=== PATIENT | female | born 1970 | race Caucasian/White ===

== ENCOUNTER → 2016-10-13 | Outpatient (CLI) | payer BC ==
--- NOTE | 2016-10-13 08:28 | US ---
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 TECHNIQUE: Multiple sonographic images of the thyroid gland are obtained. FINDINGS: Right Lobe: 4.7 x 1.8 x 1.6 cm Left Lobe: 3.9 x1.5 x 1.0 cm Isthmus Thickness: 0.4 cm Overall homogeneous glandular parenchyma. There is a single nodule within the right pole characterized as a 8 mm right mid pole cyst. No other nodule is seen. IMPRESSION: 1. Gland measurements as above with homogeneous parenchyma. 2. A single 8 mm cyst in the right lobe.
[2016-10-13 10:58] LABS: Prolactin 9.7 ng/mL (3.0-18.6)
== END | disposition home or self-care (01) ==
LOC: RADUSWWP 07:50
PROVIDERS: ATTEND Internal Medicine Endocrinology, Diabetes & Metabolism
DX: E04.1 Nontoxic single thyroid nodule (principal); R53.83 Other fatigue
CPT/HCPCS: 36415; 76536; 82533; 82607; 84146; 84439; 84443; 84445; 84480; 84481

== ENCOUNTER → 2016-10-16 | Outpatient (CLI) | payer BC ==
--- NOTE | 2016-10-16 11:03 | MM ---
Reason for exam: follow-up at short interval from prior study. Last mammogram was performed 1 year and 3 months ago. History: Cyst aspiration of the left breast, 2016. Physical Findings: Nurse Summary: 0.5-1cm nodule in the left breast at 12-4 o'clock (nurse kp). MG 3D Diag Mammo W/Cad GABRIEL Bilateral CC and MLO view(s) were taken. Prior study comparison: July 21, 2015, bilateral MG 3d diag mammo w/cad GABRIEL. January 05, 2014, bilateral digital screening mammo w/CAD. February 10, 2011, bilateral digital screening mammo w/CAD. The breast tissue is heterogeneously dense. This may lower the sensitivity of mammography. 1 palpable marker on the right breast and 3 on the left breast. Bilateral circumscribed and mostly circumscribed masses are present, some of which have decreased in size. These results were verbally communicated with the patient and result sheet given to the patient on 10/16/16. ASSESSMENT: Incomplete: need additional imaging evaluation, BI-RAD 0 RECOMMENDATION: Ultrasound of both breasts.
--- NOTE | 2016-10-16 11:17 | USB ---
Reason for exam: follow-up at short interval from prior study. History: Cyst aspiration of the left breast, 2016. US Breast BILAT Right breast ultrasound including all four quadrants, the retroareolar region and axilla demonstrates: - a 1.1 x 0.6 x 0.5cm oval, cystic lesion at 2 o'clock, - a 0.6 x 0.6 x 0.5cm mixed lesion at 7 o'clock, likely the same cyst seen previously now with some debris, - a 0.6 x 0.6 x 0.6cm round, cystic lesion at 7 o'clock, - a 1.4 x 0.7 x 1.3cm oval, cystic lesion at 9 o'clock, - a 1.5 x 0.7 x 1.2cm oval, cystic lesion at 9 o'clock, appears complex with septation versus 1.2 x 0.6 x 0.8cm previously (6 month f/u), - a 1.4 x 0.4 x 0.7cm oval, cystic lesion at 9 o'clock, - a 1.2 x 0.6cm septated lesion at 9 o'clock for which a 6 month follow up is recommended. Left breast ultrasound including all four quadrants, the retroareolar region and axilla demonstrates: - a 0.5 x 0.4 x 0.4cm round, cystic lesion at 12 o'clock, - a 0.6 x 0.4 x 0.4cm oval, cystic cluster at 1 o'clock, - a 0.7 x 0.6 x 0.5cm oval, cystic lesion at 3 o'clock, - a 0.7 x 0.7 x 0.6cm oval, mixed, solid/cystic lesion at 3 o'clock with adherent debris and appear new for which a 6 month follow up is recommended, - a 1.4 x 0.9 x 1.7cm oval, mixed lesion at 2 o'clock versus 12 x 8 x 16mm now with some mural based echogenicity, soft tissue versus adherent debris - and a 0.8 x 0.4 x 0.7cm oval, cystic lesion at 10 o'clock. These results were verbally communicated with the patient and result sheet given to the patient on 10/16/16. ASSESSMENT: Probably benign, BI-RAD 3 RECOMMENDATION: Ultrasound of both breasts in 6 months. (right breast targeted 9:00 x 2) (left breast targeted 2:00 and 3:00) MTDD
== END | disposition home or self-care (01) ==
LOC: RADMAMWWP 08:51
PROVIDERS: ATTEND Surgery
DX: N60.02 Solitary cyst of left breast (principal)
CPT/HCPCS: 76641; G0204; G0279

== ENCOUNTER 2017-11-14 16:46 | Observation (INO) | payer BC ==
[2017-11-14] MEDS ORDERED: IPRATROPIUM-ALBUTEROL 3 ML NEB INHALATION STA (17:25)
[2017-11-14] MEDS ORDERED: SODIUM CHLORIDE 0.9% 1,000 ML IV STA (17:25)
--- NOTE | 2017-11-14 17:34 | ED ---
General Adult HPI - General Chief complaint: Shortness of Breath Stated complaint: Sob Time Seen by Provider: 11/14/17 16:57 Source: patient, RN notes reviewed, old records reviewed Mode of arrival: EMS Limitations: no limitations - History of Present Illness Initial comments: This patient is a 46-year-old female presenting to emergency Department from formerly [facility] chief complaint difficulty breathing and vagal episode and dizziness when she was at the urgent care. Patient has had a significant cough for the past week. She reports on Sunday she saw her primary care provider and was started on azithromycin. They also wanted to start her on steroids that she did not want to take them because she recently lost 5 pounds and didn't want to gain weight. Patient has no history of lung diseases. Denies any history of asthma COPD. She does not regularly use an inhaler. [facility] was feeling weak and short of breath they did give her an albuterol breathing treatment. She states that she had a significant coughing fit afterwards and a syncopal episode to that. Patient reports that she has no specific chest pain. Her cough has been nonproductive. Denies any abdominal pain, nausea or vomiting. - Related Data Home Medications Medication Instructions Recorded Confirmed ALPRAZolam [Xanax] 0.5 tab PO QID PRN 05/03/14 11/14/17 HYDROcodone/APAP 10-325MG [[place] 1 tab PO QID PRN 11/14/17 11/14/17 10-325] Sertraline [Zoloft] 50 mg PO HS 11/14/17 11/14/17 Allergies Allergy/AdvReac Type Severity Reaction Status Date / Time prochlorperazine edisylate Allergy Unknown Verified 11/14/17 17:35 [From Compazine] prochlorperazine maleate Allergy Unknown Verified 11/14/17 17:35 [From Compazine] Review of Systems ROS Statement: Those systems with pertinent positive or pertinent negative responses have been documented in the HPI. ROS Other: All systems not noted in ROS Statement are negative. Past Medical History Past Medical History: No Reported History Additional Past Medical History / Comment(s): Chronic back pain, migraines, History of Any Multi-Drug Resistant Organisms: None Reported Past Surgical History: Section, Hernia Repair Additional Past Surgical History / Comment(s): ectopic , intussusception Past Psychological History: Anxiety Smoking Status: Former smoker Past Alcohol Use History: Occasional Past Drug Use History: None Reported General Exam - General Exam Comments Initial Comments: This patient is a 46-year-old female. Upon entering the room patient does appear to have some labored breathing. Oxygen saturation was 88% on room air. Limitations: no limitations General appearance: alert, in no apparent distress Head exam: Present: atraumatic, normocephalic, normal inspection Eye exam: Present: normal appearance, PERRL, EOMI. Absent: scleral icterus, conjunctival injection, periorbital swelling ENT exam: Present: normal exam, mucous membranes moist Neck exam: Present: normal inspection. Absent: tenderness, meningismus, lymphadenopathy Respiratory exam: Present: wheezes (significant wheezing bilaterally). Absent: normal lung sounds bilaterally, respiratory distress, rales, rhonchi, stridor Cardiovascular Exam: Present: regular rate, normal rhythm, normal heart sounds. Absent: systolic murmur, diastolic murmur, rubs, gallop, clicks GI/Abdominal exam: Present: soft, normal bowel sounds. Absent: distended, tenderness, guarding, rebound, rigid Extremities exam: Present: normal inspection, full ROM, normal capillary refill. Absent: tenderness, pedal edema, joint swelling, calf tenderness Back exam: Present: normal inspection Neurological exam: Present: alert, oriented X3, CN II-XII intact Psychiatric exam: Present: normal affect, normal mood Course Vital Signs 11/14/17 11/14/17 11/14/17 16:50 17:18 18:09 Temperature 98.9 F Pulse Rate 83 87 Respiratory 24 20 Rate Blood Pressure 135/70 O2 Sat by Pulse 94 L Oximetry 11/14/17 18:19 Temperature Pulse Rate 91 Respiratory Rate Blood Pressure O2 Sat by Pulse Oximetry - Reevaluation(s) Reevaluation #1: 11/14/17 19:04 Patient was reevaluated, she was informed of all of her test results and make positive for influenza. Discuss her chest x-ray is normal. Lab work was reviewed and normal. Patient is pleased with the results. However she does appear to be very labored in breathing at this time. She is mouth breathing. He went off of the oxygen oxygen saturation continues to go to 92-93%. This is after a DuoNeb treatment. Medical Decision Making - Medical Decision Making 46-year-old female presents emergency Department chief complaint of shortness of breath. She is sent here from [facility] due to low oxygen saturations and severe coughing and vagal episode after breathing treatment. Patient was started on azithromycin by PCP for bronchitis on Sunday. She reports she also given a prescription for steroids and hasn't been taking them as she is concerned she was going to gain weight. Patient arrives with a low oxygen saturation 89% on room air. She started on for 2 L of oxygen, given a DuoNeb treatment. Patient continued to have some wheezing afterward and he has low oxygen saturation. Patient's labwork was reviewed and NORMAL limits. Patient' s EKG is normal. She does have a positive influenza. Patient will be started on Tamiflu and treated for COPD exacerbation. She is not a smoker and has no previous lung issues. Discussed with Dr. Velazquez. Discussed with her admitting physician Dr. Harris. - Lab Data Result diagrams: 11/14/17 17:11 11/14/17 17:11 Lab Results 11/14/17 11/14/17 11/14/17 Range/Units 17:11 17:11 17:11 WBC 5.4 (3.8-10.6) k/uL RBC 4.27 (3.80-5.40) m/uL Hgb 12.9 (11.4-16.0) gm/dL Hct 38.6 (34.0-46.0) % MCV 90.4 (80.0-100.0) fL MCH 30.2 (25.0-35.0) pg MCHC 33.3 (31.0-37.0) g/dL RDW 14.1 (11.5-15.5) % Plt Count 362 (150-450) k/uL Neutrophils % 64 % Lymphocytes % 27 % Monocytes % 7 % Eosinophils % 1 % Basophils % 1 % Neutrophils # 3.4 (1.3-7.7) k/uL Lymphocytes # 1.4 (1.0-4.8) k/uL Monocytes # 0.4 (0-1.0) k/uL Eosinophils # 0.0 (0-0.7) k/uL Basophils # 0.0 (0-0.2) k/uL PT (9.0-12.0) sec INR (<1.2) APTT (22.0-30.0) sec D-Dimer (<0.60) mg/L FEU Sodium (137-145) mmol/L Potassium (3.5-5.1) mmol/L Chloride (98-107) mmol/L Carbon Dioxide (22-30) mmol/L Anion Gap mmol/L BUN (7-17) mg/dL Creatinine (0.52-1.04) mg/dL Est GFR (MDRD) Af Amer (>60 ml/min/1.73 sqM) Est GFR (MDRD) Non-Af (>60 ml/min/1.73 sqM) Glucose (74-99) mg/dL Calcium (8.4-10.2) mg/dL Magnesium (1.6-2.3) mg/dL Total Bilirubin (0.2-1.3) mg/dL AST (14-36) U/L ALT (9-52) U/L Alkaline Phosphatase (38-126) U/L Total Creatine Kinase 60 (30-135) U/L CK-MB (CK-2) 0.5 (0.0-2.4) ng/mL CK-MB (CK-2) Rel Index 0.8 Troponin I <0.012 (0.000-0.034) ng/mL Total Protein (6.3-8.2) g/dL Albumin (3.5-5.0) g/dL Urine Color Light Yellow Urine Appearance Clear (Clear) Urine pH 5.5 (5.0-8.0) Ur Specific [place] 1.008 (1.001-1.035) Urine Protein Negative (Negative) Urine Glucose (UA) Negative (Negative) Urine Ketones Trace H (Negative) Urine Blood Negative (Negative) Urine Nitrite Negative (Negative) Urine Bilirubin Negative (Negative) Urine Urobilinogen <2.0 (<2.0) mg/dL Ur Leukocyte Esterase Negative (Negative) Influenza Type A RNA (Not Detectd) Influenza Type B (PCR) (Not Detectd) 11/14/17 11/14/17 11/14/17 Range/Units 17:11 17:11 18:03 WBC (3.8-10.6) k/uL RBC (3.80-5.40) m/uL Hgb (11.4-16.0) gm/dL Hct (34.0-46.0) % MCV (80.0-100.0) fL MCH (25.0-35.0) pg MCHC (31.0-37.0) g/dL RDW (11.5-15.5) % Plt Count (150-450) k/uL Neutrophils % % Lymphocytes % % Monocytes % % Eosinophils % % Basophils % % Neutrophils # (1.3-7.7) k/uL Lymphocytes # (1.0-4.8) k/uL Monocytes # (0-1.0) k/uL Eosinophils # (0-0.7) k/uL Basophils # (0-0.2) k/uL PT 9.7 (9.0-12.0) sec INR 1.0 (<1.2) APTT 25.5 (22.0-30.0) sec D-Dimer 0.28 (<0.60) mg/L FEU Sodium 134 L (137-145) mmol/L Potassium 3.8 (3.5-5.1) mmol/L Chloride 97 L (98-107) mmol/L Carbon Dioxide 24 (22-30) mmol/L Anion Gap 13 mmol/L BUN 15 (7-17) mg/dL Creatinine 0.65 (0.52-1.04) mg/dL Est GFR (MDRD) Af Amer >60 (>60 ml/min/1.73 sqM) Est GFR (MDRD) Non-Af >60 (>60 ml/min/1.73 sqM) Glucose 102 H (74-99) mg/dL Calcium 9.3 (8.4-10.2) mg/dL Magnesium 1.6 (1.6-2.3) mg/dL Total Bilirubin 0.1 L (0.2-1.3) mg/dL AST 21 (14-36) U/L ALT 24 (9-52) U/L Alkaline Phosphatase 102 (38-126) U/L Total Creatine Kinase (30-135) U/L CK-MB (CK-2) (0.0-2.4) ng/mL CK-MB (CK-2) Rel Index Troponin I (0.000-0.034) ng/mL Total Protein 6.9 (6.3-8.2) g/dL Albumin 3.9 (3.5-5.0) g/dL Urine Color Urine Appearance (Clear) Urine pH (5.0-8.0) Ur Specific [place] (1.001-1.035) Urine Protein (Negative) Urine Glucose (UA) (Negative) Urine Ketones (Negative) Urine Blood (Negative) Urine Nitrite (Negative) Urine Bilirubin (Negative) Urine Urobilinogen (<2.0) mg/dL Ur Leukocyte Esterase (Negative) Influenza Type A RNA Not Detected (Not Detectd) Influenza Type B (PCR) Detected H (Not Detectd) 11/14/17 17:42 EKG shows a sinus rhythm, normal EKG. Ventricular rate of 88 bpm. AR interval 156 ms. QRS duration 86 no seconds. QT QTc is 370/447 ms. No evidence of ST elevation or T-wave inversions. No evidence of facial or ventricular arrhythmias. - Radiology Data Radiology results: report reviewed Minimal subsegmental atelectasis in the right midlung. Normal heart. Disposition Clinical Impression: Influenza B, Hypoxia, Shortness of breath Disposition: ADMITTED IP TO THIS HOSP Condition: Stable Referrals: Shashi Harris MD [Primary Care Provider] - 1-2 days Time of Disposition: 19:45
[2017-11-14 17:52] LABS: Appearance,Urine Clear (Clear); Basophils % (A) 1 %; Bilirubin,Urine Negative (Negative); Blood,Urine Negative (Negative); Color,Urine Light Yellow; Eosinophils % (A) 1 %; Glucose,Urine (UA) Negative (Negative); HCT 38.6 % (34.0-46.0); HGB 12.9 gm/dL (11.4-16.0); Ketones,Urine Trace (Negative); Leukocyte Esterase,Urine Negative (Negative); Lymphocytes # (A) 1.4 k/uL (1.0-4.8); Lymphocytes % (A) 27 %; MCH 30.2 pg (25.0-35.0); MCHC 33.3 g/dL (31.0-37.0); MCV 90.4 fL (80.0-100.0); Mean Platelet Volume 7.4; Monocytes # (A) 0.4 k/uL (0-1.0); Monocytes % (A) 7 %; Neutrophils # (A) 3.4 k/uL (1.3-7.7); Neutrophils % (A) 64 %; Nitrite,Urine Negative (Negative); PH, Urine 5.5 (5.0-8.0); Platelet Count 362 k/uL (150-450); Protein,Urine Negative (Negative); RBC 4.27 m/uL (3.80-5.40); RDW 14.1 % (11.5-15.5); Specific Gravity,Urine 1.008 (1.001-1.035); Urobilinogen,Urine <2.0 mg/dL (<2.0); WBC 5.4 k/uL (3.8-10.6)
[2017-11-14 17:56] LABS: ALT 24 U/L (9-52); AST 21 U/L (14-36); Albumin 3.9 g/dL (3.5-5.0); Alkaline Phosphatase 102 U/L (38-126); Anion Gap 13 mmol/L; Blood Urea Nitrogen 15 mg/dL (7-17); Calcium 9.3 mg/dL (8.4-10.2); Carbon Dioxide 24 mmol/L (22-30); Chloride 97 mmol/L (98-107); Glucose 102 mg/dL (74-99); Magnesium 1.6 mg/dL (1.6-2.3); Potassium 3.8 mmol/L (3.5-5.1); Sodium 134 mmol/L (137-145); Total Bilirubin 0.1 mg/dL (0.2-1.3); Total Protein 6.9 g/dL (6.3-8.2)
[2017-11-14 18:01] LABS: D-Dimer 0.28 mg/L FEU (<0.60); Partial Thromboplastin Time 25.5 sec (22.0-30.0); Prothrombin Time 9.7 sec (9.0-12.0)
[2017-11-14 18:07] LABS: Creatine Kinase 60 U/L (30-135)
[2017-11-14 18:20] LABS: Creatine Kinase MB 0.5 ng/mL (0.0-2.4); Troponin I <0.012 ng/mL (0.000-0.034)
--- NOTE | 2017-11-14 18:42 | XR ---
EXAMINATION TYPE: XR chest 2V DATE OF EXAM: 11/14/2017 COMPARISON: NONE HISTORY: Short of breath TECHNIQUE: Frontal and lateral views of the chest are obtained. FINDINGS: There is no heart failure nor confluent pneumonic infiltrate. There are chest leads. There are small linear density in the right midlung. There is no evidence of pleural effusion. Bony thorax is intact. IMPRESSION: Minimal subsegmental atelectasis in the right midlung. Normal heart.
[2017-11-14] MEDS ORDERED: OSELTAMIVIR 75 MG CAP PO STA (19:32)
[2017-11-14] MEDS ORDERED: NALOXONE 0.4 MG/ML 1 ML VIAL IV PRN (19:45)
[2017-11-14] MEDS ORDERED: BISACODYL 5 MG TABLET.DR PO PRN (19:45)
[2017-11-14] MEDS ORDERED: ONDANSETRON 4 MG/2 ML VIAL IVP PRN (19:45)
[2017-11-14] MEDS ORDERED: IBUPROFEN 400 MG TAB PO PRN (19:45)
[2017-11-14] MEDS ORDERED: ACETAMINOPHEN TAB 325 MG TAB PO PRN (19:45)
[2017-11-14] MEDS: SODIUM CHLORIDE 0.9% 1,000 ML IV SCH (20:00)
[2017-11-14] MEDS ORDERED: OSELTAMIVIR 75 MG CAP PO SCH (21:00)
[2017-11-14] MEDS ORDERED: SERTRALINE 50 MG TAB PO STA (21:27)
[2017-11-14] MEDS: ALPRAZolam 0.5 MG TAB PO PRN (22:30)
[2017-11-14] MEDS: methylPREDNISolone SOD SUCCI 125 MG/2 ML VIAL IV SCH (22:32)
[2017-11-14 22:45] VITALS: BMI 44.1
[2017-11-15] MEDS: methylPREDNISolone SOD SUCCI 125 MG/2 ML VIAL IV SCH ×4 (05:52→23:27)
[2017-11-15] MEDS: SODIUM CHLORIDE 0.9% 1,000 ML IV SCH ×2 (05:52→15:59)
[2017-11-15] MEDS: ALPRAZolam 0.5 MG TAB PO PRN ×3 (05:52→21:21)
[2017-11-15 07:33] LABS: Glucose,Whole Blood 146 mg/dL (75-99)
--- NOTE | 2017-11-15 08:09 | P.HPIM ---
History of Present Illness Chief Complaint: Upper respiratory congestion. Cough. This is a 46-year-old white female who saw him in the office last week with lower respiratory infection symptoms. Avelox are started. However, over the weekend she became worse she ended up going to the urgent care yesterday and because of her dyspnea was evaluated. Unfortunate, she was positive for influenza B and her's restaurant status declined. Significant cough as otherwise noted. She is a nonsmoker. She struggles with anxiety depression and is going through a process for gastric bypass. Review of Systems Constitutional: Reports fever, Reports sweats, Reports weakness Eyes: denies blurred vision, denies pain Ears, nose, mouth and throat: Denies headache, Denies sore throat Respiratory: Reports cough, Reports pleurisy Gastrointestinal: Denies abdominal pain, Denies diarrhea, Denies nausea, Denies vomiting Genitourinary: Denies dysuria, Denies hematuria Musculoskeletal: Denies myalgias Past Medical History Past Medical History: Pneumonia Additional Past Medical History / Comment(s): Chronic back pain, migraines, History of Any Multi-Drug Resistant Organisms: None Reported Past Surgical History: Section, Hernia Repair Additional Past Surgical History / Comment(s): ectopic , intussusception Past Psychological History: Anxiety Smoking Status: Former smoker Past Alcohol Use History: Occasional Past Drug Use History: None Reported Medications and Allergies Home Medications Medication Instructions Recorded Confirmed Type ALPRAZolam [Xanax] 0.5 mg PO QID PRN 05/03/14 11/14/17 History HYDROcodone/APAP 10-325MG [[place] 1 tab PO QID PRN 11/14/17 11/14/17 History 10-325] Sertraline [Zoloft] 50 mg PO HS 11/14/17 11/14/17 History Allergies Allergy/AdvReac Type Severity Reaction Status Date / Time prochlorperazine edisylate Allergy Unknown Verified 11/14/17 17:35 [From Compazine] prochlorperazine maleate Allergy Unknown Verified 11/14/17 17:35 [From Compazine] Physical Exam Vitals: Vital Signs Temp Pulse Pulse Resp BP BP Pulse Ox 11/15/17 07:00 97.5 F L 87 20 137/76 93 L 11/14/17 21:30 97.9 F 101 H 20 126/75 94 L 11/14/17 20:15 97.9 F 105 H 18 144/82 94 L 11/14/17 18:55 100 20 141/69 95 11/14/17 18:19 91 11/14/17 18:09 87 11/14/17 17:18 20 11/14/17 16:50 98.9 F 83 24 135/70 94 L Intake and Output 11/14/17 11/15/17 11/15/17 22:59 06:59 14:59 Intake Total 450 600 Balance 450 600 Intake: Oral 450 600 Other: # Voids 1 2 Weight 124.09 kg 124.284 kg Results CBC & Chem 7: 11/14/17 17:11 11/14/17 17:11 Labs: Abnormal Lab Results - Last 24 Hours (Table) 11/14/17 11/14/17 11/14/17 Range/Units 17:11 17:11 18:03 Sodium 134 L (137-145) mmol/L Chloride 97 L (98-107) mmol/L Glucose 102 H (74-99) mg/dL POC Glucose (mg/dL) (75-99) mg/dL Total Bilirubin 0.1 L (0.2-1.3) mg/dL Urine Ketones Trace H (Negative) Influenza Type B (PCR) Detected H (Not Detectd) 11/15/17 Range/Units 07:29 Sodium (137-145) mmol/L Chloride (98-107) mmol/L Glucose (74-99) mg/dL POC Glucose (mg/dL) 146 H (75-99) mg/dL Total Bilirubin (0.2-1.3) mg/dL Urine Ketones (Negative) Influenza Type B (PCR) (Not Detectd) Thrombosis Risk Factor Assmnt - Choose All That Apply Any of the Below Risk Factors Present?: Yes Each Factor Represents 1 point: Obesity (BMI >25) Thrombosis Risk Factor Assessment Total Risk Factor Score: 1 Thrombosis Risk Factor Assessment Level: Low Risk Assessment and Plan (1) Hypoxia Current Visit: Yes Status: Acute Code(s): R09.02 - HYPOXEMIA SNOMED Code(s ): 331457487 (2) Influenza B Current Visit: Yes Status: Acute Code(s): J10.1 - FLU DUE TO OTH IDENT INFLUENZA VIRUS W OTH RESP MANIFEST SNOMED Code(s): 98486783 (3) Shortness of breath Current Visit: Yes Status: Acute Code(s): R06.02 - SHORTNESS OF BREATH SNOMED Code(s): 325346681 Plan: Continue steroids with albuterol for today. Otherwise, anticipate discharge in the a.m. Check CBC and CMP in a.m. Time with Patient: Greater than 30
[2017-11-15] MEDS: IPRATROPIUM-ALBUTEROL 3 ML NEB INHALATION PRN ×3 (08:32→16:25)
[2017-11-15] MEDS: AZITHROMYCIN 500 MG TAB PO SCH (08:52)
[2017-11-15] MEDS: OSELTAMIVIR 75 MG CAP PO SCH ×2 (08:52→21:21)
[2017-11-15] MEDS ORDERED: PANTOPRAZOLE 40 MG/10 ML VIAL IV SCH (09:00)
[2017-11-15] MEDS: oxyCODONE-APAP 5-325MG 1 EACH TAB PO PRN ×3 (09:03→19:24)
[2017-11-15] MEDS: PROMETHAZ-COD 6.25-10 MG/5 ML 5 ML CUP PO PRN ×2 (09:03→15:57)
[2017-11-15] MEDS: KETOROLAC 30 MG/ML 1 ML VIAL IVP PRN ×2 (10:33→19:36)
[2017-11-15 12:35] LABS: Glucose,Whole Blood 287 mg/dL (75-99)
[2017-11-15] MEDS: INSULIN ASPART 100 UNIT/ML 1 ML 10 ML VIAL SQ SCH ×3 (14:06→21:23)
[2017-11-15 17:12] LABS: Glucose,Whole Blood 266 mg/dL (75-99)
[2017-11-15 20:35] LABS: Glucose,Whole Blood 191 mg/dL (75-99)
[2017-11-15] MEDS ORDERED: SERTRALINE 50 MG TAB PO SCH (21:00)
[2017-11-16] MEDS: SODIUM CHLORIDE 0.9% 1,000 ML IV SCH (03:35)
[2017-11-16] MEDS: methylPREDNISolone SOD SUCCI 125 MG/2 ML VIAL IV SCH (05:46)
[2017-11-16] MEDS: oxyCODONE-APAP 5-325MG 1 EACH TAB PO PRN (06:53)
[2017-11-16 06:54] LABS: Glucose,Whole Blood 167 mg/dL (75-99)
[2017-11-16 07:08] VITALS: BP 137/73; RESP 20; TEMP 97.8
[2017-11-16] MEDS ORDERED: PANTOPRAZOLE 40 MG TABLET PO SCH (07:30)
[2017-11-16] MEDS: INSULIN ASPART 100 UNIT/ML 1 ML 10 ML VIAL SQ SCH (08:21)
[2017-11-16] MEDS: AZITHROMYCIN 500 MG TAB PO SCH (08:21)
[2017-11-16] MEDS: OSELTAMIVIR 75 MG CAP PO SCH (08:21)
[2017-11-16 09:17] LABS: HCT 37.6 % (34.0-46.0); HGB 12.1 gm/dL (11.4-16.0); MCH 30.4 pg (25.0-35.0); MCHC 32.1 g/dL (31.0-37.0); MCV 94.7 fL (80.0-100.0); Mean Platelet Volume 7.7; Platelet Count 388 k/uL (150-450); RBC 3.97 m/uL (3.80-5.40); RDW 14.1 % (11.5-15.5); WBC 14.9 k/uL (3.8-10.6)
[2017-11-16 09:19] LABS: ALT 18 U/L (9-52); AST 23 U/L (14-36); Albumin 3.6 g/dL (3.5-5.0); Alkaline Phosphatase 88 U/L (38-126); Anion Gap 12 mmol/L; Blood Urea Nitrogen 15 mg/dL (7-17); Calcium 9.5 mg/dL (8.4-10.2); Carbon Dioxide 20 mmol/L (22-30); Chloride 103 mmol/L (98-107); Glucose 269 mg/dL (74-99); Potassium 4.8 mmol/L (3.5-5.1); Sodium 135 mmol/L (137-145); Total Bilirubin 0.2 mg/dL (0.2-1.3); Total Protein 6.4 g/dL (6.3-8.2)
[2017-11-16] MEDS: IPRATROPIUM-ALBUTEROL 3 ML NEB INHALATION PRN (10:14)
[2017-11-16 10:17] VITALS: PULSE 80
[2017-11-16 20:43] LABS: Hemoglobin A1C 6.1 % (4.0-6.0)
--- NOTE | 2017-12-08 22:59 | P.DS ---
Providers Date of admission: 11/14/17 19:45 Attending physician: Shashi Harris Primary care physician: Shashi Harris - Discharge Diagnosis(es) (1) Hypoxia Status: Acute (2) Influenza B Status: Acute (3) Shortness of breath Status: Acute Hospital Course: This discharge summary on a 46-year-old white female essentially admitted for influenza with pneumonia. The patient was stabilized and treated appropriately with Tamiflu. The patient is fatigued but able to be transferred back to home. The patient will follow up with me in approximate 4-5 days. Patient Condition at Discharge: Stable Plan - Discharge Summary New Discharge Prescriptions: New Oseltamivir [Tamiflu] 75 mg PO Q12HR #8 cap predniSONE 10 mg PO DAILY #14 tab Promethaz-Cod 6.25-10 mg/5 ml [Phenergan with Codeine] 5 ml PO Q6H PRN #150 ml PRN Reason: Cold Symptoms Continue ALPRAZolam [Xanax] 0.5 mg PO QID PRN PRN Reason: Anxiety Sertraline [Zoloft] 50 mg PO HS HYDROcodone/APAP 10-325MG [[place] 10-325] 1 tab PO QID PRN PRN Reason: Pain Discharge Medication List ALPRAZolam [Xanax] 0.5 mg PO QID PRN 05/03/14 [History] HYDROcodone/APAP 10-325MG [[place] 10-325] 1 tab PO QID PRN 11/14/17 [History] Sertraline [Zoloft] 50 mg PO HS 11/14/17 [History] Oseltamivir [Tamiflu] 75 mg PO Q12HR #8 cap 11/16/17 [Rx] Promethaz-Cod 6.25-10 mg/5 ml [Phenergan with Codeine] 5 ml PO Q6H PRN #150 ml 11/16/17 [Rx] predniSONE 10 mg PO DAILY #14 tab 11/16/17 [Rx] Follow up Appointment(s)/Referral(s): Shashi Harris MD [Primary Care Provider] - 11/20/17 10:20 am () Patient Instructions/Handouts: Influenza (DC), Dyspnea (GEN) Discharge Disposition: HOME SELF-CARE
== END 2017-11-16 10:31 | disposition home or self-care (01) ==
LOC: EC 16:46 → 4MS4W 19:45
PROVIDERS: ADMIT Family Medicine; ATTEND Family Medicine
DX: J10.00 Influenza due to other identified influenza virus with unspecified type of pneumonia (principal); F41.9 Anxiety disorder, unspecified; F32.9 Major depressive disorder, single episode, unspecified; Z87.01 Personal history of pneumonia (recurrent); R09.02 Hypoxemia; M54.9 Dorsalgia, unspecified; G89.29 Other chronic pain; Z87.891 Personal history of nicotine dependence; E66.9 Obesity, unspecified; Z68.41 Body mass index [BMI] 40.0-44.9, adult; Z79.899 Other long term (current) drug therapy; Z88.8 Allergy status to other drugs, medicaments and biological substances
CPT/HCPCS: 99285; 96361 ×3; 96376 ×2; 96374; 96375; 36415; 94640 ×3; 93005; 85379; 80053 ×2; 82550; 82553; 83735; 84484; 85025; 85027; 85610; 85730; 81003; 87040; 87502; 83036; 71046; G0378 ×3; J2930 ×3; J1885; C9113

== ENCOUNTER → 2017-11-26 | Outpatient (CLI) | payer BC ==
--- NOTE | 2017-11-26 10:27 | XR ---
EXAMINATION TYPE: XR chest 2V DATE OF EXAM: 11/26/2017 COMPARISON: 11/14/2017 TECHNIQUE: PA and lateral views submitted. HISTORY: Follow-up pneumonia FINDINGS: The lungs are clear and there is no pneumothorax, pleural effusion, or focal pneumonia. Mild hypert rophic change of the spine. IMPRESSION: 1. No acute process.
== END | disposition home or self-care (01) ==
LOC: RADXRMAIN 10:01
PROVIDERS: ATTEND Family Medicine
DX: J18.9 Pneumonia, unspecified organism (principal)
CPT/HCPCS: 71046

== ENCOUNTER 2018-04-26 06:47 | Day surgery (SDC) | payer BC ==
[2018-04-22 09:07] VITALS: BMI 44.5
[~2018-04-26 06:47] MED LIST: DEXAMETHASONE SOD PHOSPHATE 10 MG/ML 1 ML VIAL IV ONE; HEPARIN SODIUM,PORCINE 5,000 UNIT/ML 1 ML VIAL SQ ONE; LACTATED RINGERS 1,000 ML IV SCH; ONDANSETRON 4 MG/2 ML VIAL IVP ONE; SCOPOLAMINE 1.5MG/72HR PATCH TRANSDERM ONE; fentaNYL (PF) 50 MCG/ML 2 ML AMP IV PRN
[2018-04-26] MEDS ORDERED: INDOCYANINE GREEN 25 MG VIAL IV STA (06:59)
--- NOTE | 2018-04-26 06:59 | P.GSHP ---
History of Present Illness H&P Date: 04/26/18 CHIEF COMPLAINT: Cholecystitis HISTORY OF PRESENT ILLNESS: The patient is a 47-year-old female who presents with history of epigastric including right upper quadrant abdominal pain. She underwent diagnostic studies for her gallbladder. Separately her clinical picture was consistent with cholecystitis. Now she presents for surgical intervention. PAST MEDICAL HISTORY: Please see list PAST SURGICAL HISTORY: Please see list MEDICATIONS: Please see list ALLERGIES: Denies. SOCIAL HISTORY: No illicit drug use or recent tobacco use FAMILY HISTORY: Pertinent for gallbladder disease REVIEW OF ORGAN SYSTEMS: CONSTITUTIONAL: No reports of fevers or chills. HEENT: Denies any troubles with the vision or hearing. ENDOCRINE: No reports of hypothyroidism. No diabetes. RESPIRATORY: No recent pneumonias. CARDIOVASCULAR: Denies chest pain or palpitations GI: No blood in stools or constipation. MUSCULOSKELETAL: Has occasional joint pain including back pain. NEURO: No seizure disorders or headaches. No recent stroke. PSYCH: No depression or suicidal ideation. HEMATOLOGIC: No personal or family history of DVTs or pulmonary emboli. PHYSICAL EXAM: VITAL SIGNS: Afebrile vital signs stable GENERAL: Well-developed pleasant in no acute distress. HEENT: No scleral icterus. Extraocular movements grossly intact. Moist buccal mucosa. NECK: Supple without lymphadenopathy. CHEST: Unlabored respirations. Equal bilateral excursions. CARDIOVASCULAR: Regular rate regular rhythm rhythm. Distal 2+ pulses. ABDOMEN: Soft, nondistended. Tender along the epigastrium and right upper quadrant. MUSCULOSKELETAL: No clubbing, cyanosis, or edema. NEURO: Cranial nerves II to XII within normal limits. No focal or lateralizing signs. PSYCH: Alert and oriented to person, place and time. ASSESSMENT: 1. Epigastric and right upper quadrant abdominal pain 2. Chronic cholecystitis 3. Symptomatic gallstones. PLAN: 1. Will need a robotic cholecystectomy possible open. Benefits and risks were described. 2. Heparin for DVT prophylaxis 5000 units. 3. Antibiotic prophylaxis. Past Medical History Past Medical History: Pneumonia Additional Past Medical History / Comment(s): Chronic back pain, migraines, CHOLECYSTITIS History of Any Multi-Drug Resistant Organisms: None Reported Past Surgical History: Section, Hernia Repair Additional Past Surgical History / Comment(s): ectopic , intussusceptionSX Past Anesthesia/Blood Transfusion Reactions: Motion Sickness Smoking Status: Current every day smoker - Past Family History Mother Family Medical History: No Reported History Medications and Allergies Home Medications Medication Instructions Recorded Confirmed Type ALPRAZolam [Xanax] 0.5 mg PO QID PRN 05/03/14 04/22/18 History HYDROcodone/APAP 10-325MG [[place] 1 tab PO QID PRN 11/14/17 04/22/18 History 10-325] Sertraline [Zoloft] 50 mg PO HS 11/14/17 04/22/18 History Acyclovir 400 mg PO DAILY 04/22/18 04/22/18 History Lidocaine 5% Patch [Lidoderm] 1 patch TOPICAL DAILY PRN 04/22/18 04/22/18 History Varenicline [Chantix Continuing 1 mg PO BID 04/22/18 04/22/18 History Pack] Allergies Allergy/AdvReac Type Severity Reaction Status Date / Time prochlorperazine edisylate Allergy LOCK JAW Verified 04/22/18 08:59 [From Compazine] prochlorperazine maleate Allergy LOCK JAW Verified 04/22/18 08:59 [From Compazine]
[2018-04-26] MEDS ORDERED: LIDOCAINE 1% 20 ML VIAL (10MG/ML) FOR IV START INTRADERMA ONE (07:28)
[2018-04-26] MEDS: MIDAZOLAM 2 MG/2 ML VIAL IV PRN ×2 (07:50→10:41)
[2018-04-26] MEDS ORDERED: LIDOCAINE 1%-EPI 1:100,000 30 ML VIAL SQ ONE ×2 (09:05→09:37)
[2018-04-26] MEDS ORDERED: KETOROLAC 30 MG/ML 1 ML VIAL ONE (09:15)
[2018-04-26] MEDS ORDERED: NEOSTIGMINE 1 MG/ML 10 ML VIAL ONE (09:15)
[2018-04-26] MEDS ORDERED: MIDAZOLAM 2 MG/2 ML VIAL ONE (09:15)
[2018-04-26] MEDS ORDERED: PROPOFOL 10 MG/ML 20 ML VIAL IV ONE (09:15)
[2018-04-26] MEDS ORDERED: SUCCINYLCHOLINE CHLORIDE VIAL 200 MG/10 ML VIAL IV ONE (09:15)
[2018-04-26] MEDS ORDERED: GLYCOPYRROLATE 0.2 MG/ML 2 ML VIAL ONE (09:15)
[2018-04-26] MEDS ORDERED: PHENYLEPHRINE-0.9% NACL SYG 1 MG/10 ML SYRINGE ONE (09:15)
[2018-04-26] MEDS ORDERED: ONDANSETRON 4 MG/2 ML VIAL ONE (09:15)
[2018-04-26] MEDS ORDERED: fentaNYL (PF) 50 MCG/ML 2 ML AMP ONE (09:15)
[2018-04-26] MEDS ORDERED: LIDOCAINE 1% INJ 10MG/ML (20 ML MDV) ONE (09:15)
--- NOTE | 2018-04-26 10:12 | P.OP ---
Date of Procedure: 04/26/18 Description of Procedure: SURGEON: SHELLY STEVEN MD PREOPERATIVE DIAGNOSES: 1. Symptomatic gallstones 2. Chronic cholecystitis 3. Morbid obesity due to excess calories, BMI 44.5 4. Chronic pain syndrome 5. Anxiety POSTOPERATIVE DIAGNOSES: 1. Symptomatic gallstones 2. Chronic cholecystitis 3. Morbid obesity due to excess calories, BMI 44.5 4. Chronic pain syndrome 5. Anxiety OPERATION: Robotic-assisted da Edil Xi laparoscopic cholecystectomy, multiport with FIREFLY ESTIMATED BLOOD LOSS: 5 mL. SPECIMENS REMOVED: Gallbladder. COMPLICATIONS: None. OPERATIVE FINDINGS: 1. Chronic cholecystitis INDICATIONS: The patient is a 89year-old female who presents with cholelcystitis. Surgical intervention with a laparoscopic cholecystectomy was described at length including injury to the biliary tree, bleeding, infection, need for further surgery. Informed consent was obtained. Robotic assisted laparoscopic approach was described. Benefits and risks of the procedure including but not limited to bleeding, infection, injury to the biliary tree was described. Informed consent was obtained. DESCRIPTION OF PROCEDURE: Patient was brought to the operating room, placed in supine position. After general induction, the abdomen had been prepped and draped in standard sterile fashion. The robotic da Edil XI system was primed. After a timeout protocol was performed, the patient had been prepped and draped in standard sterile fashion. The patient was injected with indocyanine green. A 5 mm 0 degrees laparoscopic trocar entry was performed along the left upper quadrant. The abdomen insufflated to 15 mmHg pressure which she tolerated well. Diagnostic laparoscopy demonstrated no injury to bowel viscera or mesentery. The liver surface was unremarkable. Next, two 8 mm robotic ports were placed along the right upper abdomen. The camera 8-mm port was maintained along the epigastrium. Another 8 mm port was placed along the left upper abdominal wall after exchanging the 5 mm port. Please note that the ports were placed at least 10 to 15 cm away from the target anatomy of the gallbladder. The robot was docked along the left lateral abdomen. The patient was repositioned in reverse Trendelenburg position. Using a grasper for arm 3, a grasper for arm 4, including hook cautery for arm 1 , the robotic system was docked and primed as described. Instruments were interchanged by the residential assistant including hook cautery, Bovie cautery and clip appliers. I had sat at the console. Adhesions were identified along the infundibulum of the gallbladder and addressed using hook cautery. The gallbladder fundus was retracted over the dome of the liver. Initial attention was brought to the infundibulum which was gently retracted in the inferior lateral approach. Using a grasper, the cystic duct including the cystic artery was carefully skeletonized. FIREFLY was used to identify the cystic artery and cystic structures. Large PLASTIC clips were used throughout the entire case. Using a clip electronic equipment trades worker 2 clips were placed proximally, and 1 clip was placed distally along the cystic duct and then cauterized with the cautery. Again care was taken to avoid any injury to the biliary tree as the common bile duct was clearly visualized during this portion of dissection. Next, the cystic artery was similarly clipped and cauterized. Electro-Bovie cautery was used to remove the gallbladder from the hepatic fossa. Hemostasis was checked and found to be adequate. The robot was undocked. I re-scrubbed into the case. Using a 10 mm Endo Catch bag via the left upper quadrant incision, the specimen was removed from the abdominal cavity. All pneumoperitoneum instruments were evacuated from the abdominal cavity. The incisions were reapproximated using 4-0 Monocryl in an interrupted subcuticular fashion. Fascial defects were less than 8 mm in size. Please note along the trocar sites, local anesthetic was placed as a field block prior to insertion of all instruments. Liquid glue was applied to the skin. At the end of the procedure needle, sponge, and instrument count had been verified correct by the cardiovascular surgical tech. The patient was transferred to postanesthesia care unit in stable condition. Intraoperative films were shared with the patient's family who were very pleased with the level of care. Console time 10 minutes Plan - Discharge Summary New Discharge Prescriptions: No Action ALPRAZolam [Xanax] 0.5 mg PO QID PRN PRN Reason: Anxiety Sertraline [Zoloft] 50 mg PO HS HYDROcodone/APAP 10-325MG [[place] 10-325] 1 tab PO QID PRN PRN Reason: Pain Acyclovir 400 mg PO DAILY Varenicline [Chantix Continuing Pack] 1 mg PO BID Lidocaine 5% Patch [Lidoderm] 1 patch TOPICAL DAILY PRN PRN Reason: Pain Discharge Medication List ALPRAZolam [Xanax] 0.5 mg PO QID PRN 05/03/14 [History] HYDROcodone/APAP 10-325MG [[place] 10-325] 1 tab PO QID PRN 11/14/17 [History] Sertraline [Zoloft] 50 mg PO HS 11/14/17 [History] Acyclovir 400 mg PO DAILY 04/22/18 [History] Lidocaine 5% Patch [Lidoderm] 1 patch TOPICAL DAILY PRN 04/22/18 [History] Varenicline [Chantix Continuing Pack] 1 mg PO BID 04/22/18 [History] Patient Instructions/Handouts: *Surgery [facility] - Scopalamine Patch Instructions
[2018-04-26] MEDS: HYDROmorphone 1 MG/ML 1 ML SYRINGE IVP ONE ×2 (10:26→10:32)
[2018-04-26] MEDS ORDERED: diphenhydrAMINE 50 MG/ML 1 ML VIAL IVP ONE (10:28)
[2018-04-26] MEDS ORDERED: PROMETHAZINE INJ 25 MG/ML 1 ML VIAL IVPB ONE (10:36)
[2018-04-26 10:43] VITALS: TEMP 97.3
[2018-04-26 10:57] VITALS: RESP 16
[2018-04-26] MEDS ORDERED: HYDROcodone/APAP 10-325MG 1 EACH TAB PO ONE (11:19)
[2018-04-26 12:02] VITALS: BP 136/86; PULSE 77
== END 2018-04-26 12:13 | disposition home or self-care (01) ==
LOC: OR 06:47
PROVIDERS: ATTEND Surgery Plastic and Reconstructive Surgery
DX: K81.9 Cholecystitis, unspecified (principal); G89.4 Chronic pain syndrome; M54.9 Dorsalgia, unspecified; F41.9 Anxiety disorder, unspecified; E66.01 Morbid (severe) obesity due to excess calories; Z68.41 Body mass index [BMI] 40.0-44.9, adult; F17.210 Nicotine dependence, cigarettes, uncomplicated; Z88.8 Allergy status to other drugs, medicaments and biological substances; Z79.899 Other long term (current) drug therapy; Z83.79 Family history of other diseases of the digestive system
CPT/HCPCS: 47562; 81025; 88304; 84132; J2250; J0330; J1200; J1644; J1100; J2550; J2710; J0690; J2405; J2001; J3010; J1885; J1170; J2370; J2704

== ENCOUNTER → 2018-08-16 | Outpatient (CLI) | payer BC ==
--- NOTE | 2018-08-19 10:02 | MM ---
Reason for exam: additional evaluation requested from prior study. Last mammogram was performed 1 year and 10 months ago. History: Cyst aspiration of the left breast, 2016. Physical Findings: Nurse did not find any significant physical abnormalities on exam. MG 3D Diag Mammo W/Cad GABRIEL Bilateral CC and MLO view(s) were taken. Prior study comparison: October 16, 2016, bilateral MG 3d diag mammo w/cad GABRIEL. July 21, 2015, bilateral MG 3d diag mammo w/cad GABRIEL. The breast tissue is heterogeneously dense. This may lower the sensitivity of mammography. Persistent nodularity, ultrasound recommended. These results were verbally communicated with the patient and result sheet given to the patient on 08/16/18. ASSESSMENT: Incomplete: need additional imaging evaluation, BI-RAD 0 RECOMMENDATION: Ultrasound of both breasts.
--- NOTE | 2018-08-19 10:06 | USB ---
Reason for exam: additional evaluation requested from abnormal screening. History: Cyst aspiration of the left breast, 2016. US Breast Limited BILAT Right limited breast ultrasound including focal area of concern, retroareolar and axilla demonstrates a 0.8 x 0.6 x 0.8cm cystic lesion at 9 o'clock, a 0.6 x 0.4 x 0.4cm cystic, hypoechoic lesion at 11 o'clock and a 0.6 x 0.6 x 0.9cm cystic cluster at 10 o'clock retroareola. Left limited breast ultrasound including focal area of concern, retroareolar and axilla demonstrates a 0.9 x 0.3 x 0.7cm cystic cluster at 2 o'clock, a 0.9 x 0.5 x 0.8cm cystic cluster at 3 o'clock, a 0.6 x 0.6 x 0.7cm mixed lesion at 3 o'clock and a 0.7 x 0.3 x 0.6cm cystic lesion at 3 o'clock. Overall fibrocystic change. Multiple cystic areas visualized. These results were verbally communicated with the patient and result sheet given to the patient on 08/16/18. ASSESSMENT: Benign, BI-RAD 2 RECOMMENDATION: Follow-up diagnostic mammogram of both breasts in 1 year.
== END | disposition home or self-care (01) ==
LOC: RADMAMWWP 15:25
PROVIDERS: ATTEND Surgery
DX: R92.8 Other abnormal and inconclusive findings on diagnostic imaging of breast (principal)
CPT/HCPCS: 77062; 77066

== ENCOUNTER → 2020-06-02 | Outpatient (CLI) | payer OTHER ==
--- NOTE | 2020-06-02 22:45 | MR ---
EXAMINATION TYPE: MR sacroiliac joints wo con DATE OF EXAM: 06/02/2020 COMPARISON: None. HISTORY: Inflammation of SI joints. Abnormal x-ray per patient. Standard multiplanar, multisequence MRI departmental protocol Multiplanar, multisequence images of the pelvis focused on sacroiliac joints were acquired. FINDINGS: Sacroiliac joints show mild narrowing bilaterally left greater than right. No significant s purring is present. No suspicious edema noted. Bone marrow signal intensity is preserved. Incidental moderate to severe disc space narrowing and spurring at the lumbosacral junction. IMPRESSION: Mild degenerative changes sacroiliac joints bilaterally. Left greater than right. No MRI evidence for acute edema to suggest active inflammation on this noncontrast study.
== END | disposition home or self-care (01) ==
LOC: RADMRIMAIN 17:03
PROVIDERS: ATTEND Internal Medicine Rheumatology
DX: M46.1 Sacroiliitis, not elsewhere classified (principal)
CPT/HCPCS: 72195

== ENCOUNTER → 2020-11-09 | Outpatient (CLI) | payer OTHER ==
--- NOTE | 2020-11-09 10:26 | CT ---
EXAMINATION TYPE: CT abdomen pelvis w con DATE OF EXAM: 11/09/2020 COMPARISON: No prior CT is available HISTORY: Diverticulitis CT DLP: 1666 mGycm Automated exposure control for dose reduction was used. TECHNIQUE: Helical acquisition of images from the lung bases through the pelvis have been completed. CONTRAST: Performed with Oral Contrast and with IV Contrast, patient injected with 100 ml mL of Isovue 300. FINDINGS: Surgical clips are present at the gastroesophageal junction. LUNG BASES: No significant abnormality is appreciated. AORTA: No significant abnormality is appreciated. LIVER/GB: Mildly dilated intrahepatic biliary ducts likely due to postcholecystectomy change. Tiny fo ci of low attenuation may represent small cysts but are indeterminate scattered within the liver PANCREAS: Redundant tail of pancreas thought present at the level of the splenic hilum. SPLEEN: No significant abnormality is seen. ADRENALS: No significant abnormality is seen. KIDNEYS: No significant abnormality is seen. Duplicated left renal collecting system is present. REPRODUCTIVE ORGANS: No significant abnormality is seen BOWEL: There is extensive diverticular change associated with the colon especially sigmoid FREE AIR: No Free Air visible. ASCITES: None visible. PELVIC ADENOPATHY: None visualized. RETROPERITONEAL ADENOPATHY: No Retroperitoneal Adenopathy visible. URINARY BLADDER: No significant abnormality is seen. OSSEOUS STRUCTURES: Degenerative disc changes are noted especially at L5-S1. IMPRESSION: DIVERTICULOSIS. POSTOP CHANGES.
== END | disposition home or self-care (01) ==
LOC: RADCTMAIN 07:01
PROVIDERS: ATTEND Surgery Plastic and Reconstructive Surgery
DX: K57.90 Diverticulosis of intestine, part unspecified, without perforation or abscess without bleeding (principal); Z98.890 Other specified postprocedural states
CPT/HCPCS: 74177; Q9967

== ENCOUNTER → 2020-11-16 | Outpatient (CLI) | payer OTHER ==
[2020-11-16 11:26] LABS: HCT 48.1 % (34.0-46.0); HGB 15.5 gm/dL (11.4-16.0); MCH 30.3 pg (25.0-35.0); MCHC 32.3 g/dL (31.0-37.0); MCV 93.9 fL (80.0-100.0); Mean Platelet Volume 7.3; Platelet Count 428 k/uL (150-450); RBC 5.12 m/uL (3.80-5.40); RDW 14.1 % (11.5-15.5); WBC 10.6 k/uL (3.8-10.6)
[2020-11-16 11:46] LABS: ALT 21 U/L (4-34); AST 23 U/L (14-36); African American GFR (CKD) >90 (>60 ml/min/1.73 sqM); Albumin 4.6 g/dL (3.5-5.0); Alkaline Phosphatase 104 U/L (38-126); Anion Gap 10 mmol/L; Blood Urea Nitrogen 11 mg/dL (7-17); Calcium 10.2 mg/dL (8.4-10.2); Carbon Dioxide 23 mmol/L (22-30); Chloride 104 mmol/L (98-107); Glucose 110 mg/dL (74-99); Non-African American GFR(CKD) >90 (>60 ml/min/1.73 sqM); Potassium 4.7 mmol/L (3.5-5.1); Sodium 137 mmol/L (137-145); Total Bilirubin 0.4 mg/dL (0.2-1.3); Total Protein 7.7 g/dL (6.3-8.2)
== END | disposition home or self-care (01) ==
LOC: LABWHC1 10:16
PROVIDERS: ATTEND Surgery Plastic and Reconstructive Surgery
DX: K57.32 Diverticulitis of large intestine without perforation or abscess without bleeding (principal)
CPT/HCPCS: 36415; 80053; 85027

== ENCOUNTER 2020-11-24 07:51 | Day surgery (SDC) | payer OTHER ==
[2020-11-22 10:48] VITALS: BMI 44.4
--- NOTE | 2020-11-24 04:13 | P.GSHP ---
History of Present Illness H&P Date: 11/24/20 CHIEF COMPLAINT: GERD and colon screen HISTORY OF PRESENT ILLNESS: The patient is a 49-year-old female who presents with gastroesophageal reflux disease and need for colon screen. Upper and lower endoscopy were offered for further evaluation and management. PAST MEDICAL HISTORY: Please see list. PAST SURGICAL HISTORY: Please see list. MEDICATIONS: Please see list. ALLERGIES: Please see list. SOCIAL HISTORY: No illicit drug use FAMILY HISTORY: No reports of Crohn disease or ulcerative colitis. REVIEW OF ORGAN SYSTEMS: CONSTITUTIONAL: No reports of fevers or chills. GI: Denies any blood in stools or constipation. PHYSICAL EXAM: VITAL SIGNS: Stable GENERAL: Well-developed pleasant in no acute distress. HEENT: No scleral icterus. Extraocular movements grossly intact. Moist buccal mucosa. NECK: Supple without lymphadenopathy. CHEST: Unlabored respirations. Equal bilateral excursions. CARDIOVASCULAR: Regular rate and rhythm. Distal 2+ pulses. ABDOMEN: Soft, nondistended. MUSCULOSKELETAL: No clubbing, cyanosis, or edema. ASSESSMENT: 1. Gastroesophageal reflux disease 2. Colon screen. PLAN: 1. Recommend proceeding with an upper and lower endoscopy Past Medical History Past Medical History: Asthma, GERD/Reflux, GI Bleed, Hyperlipidemia, Osteoarthritis (OA), Pneumonia, Skin Disorder Additional Past Medical History / Comment(s): Recent Diverticulitis flare up. Chronic back pain, migraines, hx Pneumonia numerous times, low BP, "episodes of high cholestrol, no treatment." "Can't remember name of skin disorder." History of Any Multi-Drug Resistant Organisms: None Reported Past Surgical History: Section, Cholecystectomy, Hernia Repair Additional Past Surgical History / Comment(s): Ectopic , intussusception surgery, Laproscopic Leanne Fundoplasty, correction of Asherman's Syndrome (Cervical(CROSSING GATEMAN) Surgery for scar tissue formation). Past Anesthesia/Blood Transfusion Reactions: No Reported Reaction, Motion Sickness Past Psychological History: Anxiety, Depression Smoking Status: Current every day smoker Past Alcohol Use History: None Reported Additional Past Alcohol Use History / Comment(s): Smokes 1/2-1PPD, has been smoking on and off since 17 yrs old. Past Drug Use History: None Reported - Past Family History Mother Family Medical History: No Reported History Brother(s) Family Medical History: Deep Vein Thrombosis (DVT), Myocardial Infarction ([place]) Medications and Allergies Home Medications Medication Instructions Recorded Confirmed Type ALPRAZolam [Xanax] 0.5 mg PO QID PRN 05/03/14 11/22/20 History HYDROcodone/APAP 10-325MG [[place] 1 tab PO QID PRN 11/14/17 11/22/20 History 10-325] Sertraline [Zoloft] 50 mg PO HS 11/14/17 11/22/20 History Acyclovir 400 mg PO DAILY 04/22/18 11/22/20 History Ammonium Lactate Cream [Lac-Hydrin 1 applic TOPICAL BID PRN 11/22/20 11/22/20 History 12% Cream] Ibuprofen [Motrin] 800 mg PO Q8H PRN 11/22/20 11/22/20 History Allergies Allergy/AdvReac Type Severity Reaction Status Date / Time prochlorperazine edisylate Allergy LOCK JAW Verified 11/22/20 10:24 [From Compazine] prochlorperazine maleate Allergy LOCK JAW Verified 11/22/20 10:24 [From Compazine]
[~2020-11-24 07:51] MED LIST changes: -DEXAMETHASONE SOD PHOSPHATE 10 MG/ML 1 ML VIAL IV ONE; -HEPARIN SODIUM,PORCINE 5,000 UNIT/ML 1 ML VIAL SQ ONE; +LIDOCAINE 1% (10MG/ML) FOR IV START INTRADERMA PRN; -ONDANSETRON 4 MG/2 ML VIAL IVP ONE; -SCOPOLAMINE 1.5MG/72HR PATCH TRANSDERM ONE; -fentaNYL (PF) 50 MCG/ML 2 ML AMP IV PRN
[2020-11-24 08:12] VITALS: TEMP 97.3
[2020-11-24] MEDS ORDERED: ONDANSETRON 4 MG/2 ML VIAL IVP ONE (08:47)
[2020-11-24] MEDS ORDERED: PROPOFOL 10 MG/ML 20 ML VIAL IV ONE (09:02)
[2020-11-24] MEDS ORDERED: LIDOCAINE 1% INJ 10MG/ML (20 ML MDV) ONE (09:02)
--- NOTE | 2020-11-24 09:17 | P.PCN ---
Date of Procedure: 11/24/20 Description of Procedure: PREOPERATIVE DIAGNOSIS: Gastroesophageal reflux disease. Morbid obesity. POSTOPERATIVE DIAGNOSIS: Morbid obesity. Gastritis. Gastroesophageal reflux disease. OPERATION: Esophagogastroduodenoscopy with biopsies along antrum. SURGEON: Lola Galindo MD ANESTHESIA: MAC. INDICATIONS: The patient is a 49-year-old female who presents with a history of reflux disease. Benefits and risks of the procedure were described. Informed consent was obtained. DESCRIPTION: The patient was brought into the endoscopy suite and laid in the left lateral decubitus position. An Olympus gastroscope was passed along the posterior oropharynx down to the distal esophagus where the squamocolumnar junction was encountered at 37 cm from the incisors. The stomach was entered and no bile reflux was found. Additional findings are listed below. Biopsies with cold forceps were obtained of the antrum. The first through third portion of the duodenum was examined and unremarkable. Retroflexion of the scope confirmed Hill grade 1 lower esophageal valve. The squamocolumnar junction demonstrated no LA grade A erosive esophagitis. The stomach was desufflated. The patient tolerated the procedure well. FINDINGS: Squamocolumnar junction 37 cm from the incisors. Diaphragmatic hiatus at 37 cm. Hill grade 1 lower esophageal valve. Leanne fundoplasty intact. No LA grade A erosive esophagitis. No active duodenitis. Chronic gastritis RECOMMENDATIONS: Upper endoscopy as needed.
--- NOTE | 2020-11-24 09:35 | P.PCN ---
Date of Procedure: 11/24/20 Description of Procedure: PREOPERATIVE DIAGNOSIS: Recurrent diverticulitis POSTOPERATIVE DIAGNOSIS: Severe sigmoid diverticulosis Diverticulosis, scattered Sigmoid colon polyp OPERATION: Colonoscopy to the cecum, ileocecal valve and appendiceal orifice. Colonoscopy with cold forceps biopsy, sigmoid colon SURGEON: Lola Galindo MD. ANESTHESIA: MAC. INDICATIONS: The patient is a 49-year-old female who presents for diverticulosis with diverticulitis. Benefits and risks were described and informed consent was obtained. DESCRIPTION OF PROCEDURE: The patient had undergone Gatorade, MiraLAX and Dulcolax prep. The patient had been brought into the operating room and laid in the left lateral decubitus position. After adequate intravenous sedation, the rectum was examined with 2% lidocaine jelly. No external hemorrhoids were encountered. The rectal tone was within normal limits. No lesions were palpated in the rectal vault. An Olympus colonoscope was advanced until the cecum, ileocecal valve and appendiceal orifice were clearly viewed. The prep was fair. Severe sigmoid diverticulosis with scattered diverticulosis was encountered. A hyperplastic 3 mm colon polyp was removed at the sigmoid colon, 20 cm from the anal verge using cold forceps. No evidence of focal colitis was found. Retroflexion of the scope demonstrated grade 1 internal hemorrhoids without active bleeding or inflammation. The colon was desufflated. The patient had tolerated the procedure well. Withdrawal time was over 6 minutes. FINDINGS: Aronchick preparation quality scale 3 (1-5) Internal hemorrhoids, grade 1 No external prolapsed hemorrhoids. No arteriovenous malformations. Severe sigmoid diverticulosis with scattered diverticulosis No focal colitis. RECOMMENDATIONS: Lower endoscopy every in 5 years, 2025 Plan - Discharge Summary Discharge Rx Participant: No New Discharge Prescriptions: Continue ALPRAZolam [Xanax] 0.5 mg PO QID PRN PRN Reason: Anxiety Sertraline [Zoloft] 50 mg PO HS HYDROcodone/APAP 10-325MG [[place] 10-325] 1 tab PO QID PRN PRN Reason: Pain Acyclovir 400 mg PO DAILY Ibuprofen [Motrin] 800 mg PO Q8H PRN PRN Reason: Pain Ammonium Lactate Cream [Lac-Hydrin 12% Cream] 1 applic TOPICAL BID PRN PRN Reason: Skin Disorder Discharge Medication List ALPRAZolam [Xanax] 0.5 mg PO QID PRN 05/03/14 [History] HYDROcodone/APAP 10-325MG [[place] 10-325] 1 tab PO QID PRN 11/14/17 [History] Sertraline [Zoloft] 50 mg PO HS 11/14/17 [History] Acyclovir 400 mg PO DAILY 04/22/18 [History] Ammonium Lactate Cream [Lac-Hydrin 12% Cream] 1 applic TOPICAL BID PRN 11/22/20 [History] Ibuprofen [Motrin] 800 mg PO Q8H PRN 11/22/20 [History] Follow up Appointment(s)/Referral(s): Lola Galindo MD [STAFF PHYSICIAN] - 11/30/20 Patient Instructions/Handouts: Diverticulosis Diet (GEN), Diverticulosis (ED), Colorectal Polyps (DC) Activity/Diet/Wound Care/Special Instructions: Repeat colonoscopy 5 years, 2025 Discharge Disposition: HOME SELF-CARE
[2020-11-24] MEDS ORDERED: ONDANSETRON 4 MG/2 ML VIAL ONE (09:44)
[2020-11-24 10:03] VITALS: BP 108/75; PULSE 83; RESP 16
== END 2020-11-24 10:27 | disposition home or self-care (01) ==
LOC: ORWHC2ENDO 07:51
PROVIDERS: ATTEND Surgery Plastic and Reconstructive Surgery
DX: K63.5 Polyp of colon (principal); K57.30 Diverticulosis of large intestine without perforation or abscess without bleeding; K64.0 First degree hemorrhoids; K29.50 Unspecified chronic gastritis without bleeding; K21.9 Gastro-esophageal reflux disease without esophagitis; E66.01 Morbid (severe) obesity due to excess calories; J45.909 Unspecified asthma, uncomplicated; E78.5 Hyperlipidemia, unspecified; M19.90 Unspecified osteoarthritis, unspecified site; G89.29 Other chronic pain; G43.909 Migraine, unspecified, not intractable, without status migrainosus; L98.9 Disorder of the skin and subcutaneous tissue, unspecified; F41.9 Anxiety disorder, unspecified; F32.9 Major depressive disorder, single episode, unspecified; F17.210 Nicotine dependence, cigarettes, uncomplicated; K08.89 Other specified disorders of teeth and supporting structures; Z68.41 Body mass index [BMI] 40.0-44.9, adult; Z87.19 Personal history of other diseases of the digestive system; Z87.01 Personal history of pneumonia (recurrent); Z86.39 Personal history of other endocrine, nutritional and metabolic disease; Z98.890 Other specified postprocedural states; Z90.49 Acquired absence of other specified parts of digestive tract; Z87.59 Personal history of other complications of pregnancy, childbirth and the puerperium; Z87.42 Personal history of other diseases of the female genital tract; Z87.898 Personal history of other specified conditions; Z79.899 Other long term (current) drug therapy; Z79.891 Long term (current) use of opiate analgesic; Z79.52 Long term (current) use of systemic steroids; Z79.1 Long term (current) use of non-steroidal anti-inflammatories (NSAID); Z88.8 Allergy status to other drugs, medicaments and biological substances; Z82.49 Family history of ischemic heart disease and other diseases of the circulatory system
CPT/HCPCS: 88305; 45380; 43239; J2405; J2001; J2704

== ENCOUNTER → 2021-01-14 | Outpatient (CLI) | payer OTHER ==
[2021-01-18 08:24] LABS: Anabasine Urine <2.0 ng/mL (<2.0)
== END | disposition home or self-care (01) ==
LOC: LABWHC1 14:01
PROVIDERS: ATTEND Surgery Plastic and Reconstructive Surgery
DX: Z71.51 Drug abuse counseling and surveillance of drug abuser (principal)
CPT/HCPCS: 80323

== ENCOUNTER → 2021-02-02 | Outpatient (CLI) | payer OTHER ==
[2021-02-05 15:56] LABS: Anabasine Urine <2.0 ng/mL (<2.0)
== END | disposition home or self-care (01) ==
LOC: LABWHC1 07:05
PROVIDERS: ATTEND Surgery Plastic and Reconstructive Surgery
DX: Z71.51 Drug abuse counseling and surveillance of drug abuser (principal)
CPT/HCPCS: 80323

== ENCOUNTER → 2021-05-19 | Outpatient (CLI) | payer OTHER | END | disposition home or self-care (01) | LOC: LABPAT 10:28 | PROVIDERS: ATTEND Surgery Plastic and Reconstructive Surgery | DX: Z01.812 Encounter for preprocedural laboratory examination (principal) | CPT/HCPCS: 80053; 85027; 86850; 86900; 86901 ==

== ENCOUNTER 2021-05-26 07:08 | Inpatient (IN) | payer OTHER ==
[2021-05-19 11:53] LABS: HCT 41.5 % (34.0-46.0); HGB 14.2 gm/dL (11.4-16.0); MCH 32.1 pg (25.0-35.0); MCHC 34.2 g/dL (31.0-37.0); MCV 93.8 fL (80.0-100.0); Mean Platelet Volume 7.3; Platelet Count 401 k/uL (150-450); RBC 4.43 m/uL (3.80-5.40); RDW 14.2 % (11.5-15.5); WBC 7.8 k/uL (3.8-10.6)
[2021-05-19 12:12] VITALS: BMI 46.6
[2021-05-19 12:30] LABS: ALT 21 U/L (4-34); AST 34 U/L (14-36); African American GFR (CKD) >90 (>60 ml/min/1.73 sqM); Albumin 4.6 g/dL (3.5-5.0); Alkaline Phosphatase 131 U/L (38-126); Anion Gap 12 mmol/L; Blood Urea Nitrogen 20 mg/dL (7-17); Calcium 9.7 mg/dL (8.4-10.2); Carbon Dioxide 19 mmol/L (22-30); Chloride 105 mmol/L (98-107); Glucose 149 mg/dL (74-99); Non-African American GFR(CKD) 88 (>60 ml/min/1.73 sqM); Sodium 136 mmol/L (137-145); Total Bilirubin 0.5 mg/dL (0.2-1.3); Total Protein 7.5 g/dL (6.3-8.2)
[2021-05-19 12:34] LABS: Potassium 5.3 mmol/L (3.5-5.1)
[2021-05-26] MEDS: LACTATED RINGERS 1,000 ML IV SCH ×2 (07:26→09:14)
[2021-05-26] MEDS ORDERED: PROPOFOL 10 MG/ML 20 ML VIAL IV ONE (07:59)
--- NOTE | 2021-05-26 08:08 | P.GSHP ---
History of Present Illness H&P Date: 05/26/21 CHIEF COMPLAINT: Complicated sigmoid diverticulitis HISTORY OF PRESENT ILLNESS: The patient is a 50-year-old female with complicated diverticulitis including recurrent attacks in the last 6 months. She reports moderate to severe abdominal pain. She presents for colonoscopy to exclude underlying neoplasm including sigmoid colon resection. PAST MEDICAL HISTORY: Please see list. PAST SURGICAL HISTORY: Please see list. MEDICATIONS: Please see list. ALLERGIES: Please see list. SOCIAL HISTORY: No illicit drug use FAMILY HISTORY: No reports of Crohn disease or ulcerative colitis. REVIEW OF ORGAN SYSTEMS: CONSTITUTIONAL: Denies any fever or chills. HEENT: Denies any trouble with vision or nosebleeds. No difficulty swallowing. LYMPHATIC: The patient denies any lumps and bumps around the neck. ENDOCRINE: Denies any thyroid disorders. Denies diabetes type 2. RESPIRATORY: No shortness of breath. CARDIOVASCULAR: No recent chest pain. GASTROINTESTINAL: History of completed diverticulitis with abscess. GENITOURINARY: No blood in urine. MUSCULOSKELETAL: Has back pain, stiffness, joint arthritis. NEUROLOGIC: Denies any numbness or tingling along the distal extremities. PSYCHIATRIC: Has depression. HEMATOLOGIC: Denies any abnormal bleeding or bruising. PHYSICAL EXAM: VITAL SIGNS: Stable GENERAL: Well-developed pleasant in no acute distress. HEENT: No scleral icterus. Extraocular movements grossly intact. Moist buccal mucosa. NECK: Supple without lymphadenopathy. CHEST: Unlabored respirations. Equal bilateral excursions. CARDIOVASCULAR: Regular rate and rhythm. Distal 2+ pulses. ABDOMEN: Soft, nontender, nondistended. MUSCULOSKELETAL: No clubbing, cyanosis, or edema. NERUO: Cranial nerves 2-12 grossly intact. PSYCH: Alert and oriented to person place and time. ASSESSMENT: 1. History of complicated diverticulitis 2. Morbid obesity, BMI 44.7 PLAN: 1. Benefits and risks of surgical robotic sigmoid resection was reviewed in detail. Robotic-assisted approach was also described. 2. Enhanced colon recovery program. 3. DVT prophylaxis. 4. Antibiotic prophylaxis. 5. Inpatient hospitalization greater than 2 nights. 6. Colonoscopy preoperatively described for neoplasm assessment 7. Patient is elevated risk for complication with morbid obesity. Past Medical History Past Medical History: Asthma, Musculoskeletal Disorder, Osteoarthritis (OA), Pneumonia, Skin Disorder Additional Past Medical History / Comment(s): Chronic back/hips pain, wrist/finger pain, migraines, diverticulitis. Aortic aneurysm. Eczema type condition. History of Any Multi-Drug Resistant Organisms: None Reported Past Surgical History: Section, Cholecystectomy, Hernia Repair Additional Past Surgical History / Comment(s): ectopic , intussusception Sx, Lap Leanne, Colonoscopy Past Anesthesia/Blood Transfusion Reactions: Motion Sickness Smoking Status: Former smoker - Past Family History Mother Family Medical History: No Reported History Additional Family Medical History / Comment(s): by suicide Brother(s) Family Medical History: Deep Vein Thrombosis (DVT), Myocardial Infarction ([place]) Father Family Medical History: Congestive Heart Failure (CHF) Medications and Allergies Home Medications Medication Instructions Recorded Confirmed Type ALPRAZolam [Xanax] 1 mg PO QID PRN 05/03/14 05/26/21 History HYDROcodone/APAP 10-325MG [[place] 1 tab PO QID 11/14/17 05/26/21 History 10-325] Sertraline [Zoloft] 50 mg PO HS 11/14/17 05/19/21 History Acyclovir 400 mg PO DAILY 04/22/18 05/26/21 History Ammonium Lactate Cream [Lac-Hydrin 1 applic TOPICAL BID PRN 11/22/20 05/26/21 History 12% Cream] Ibuprofen [Motrin] 800 mg PO Q8H PRN 11/22/20 05/26/21 History Betamethasone Dipropionate 1 applic TOPICAL BID PRN 05/20/21 05/20/21 History [Diprolene AF 0.05% Cream] buPROPion HCL [buPROPion HCL Xl] 150 mg PO HS 05/20/21 05/20/21 History Allergies Allergy/AdvReac Type Severity Reaction Status Date / Time prochlorperazine edisylate Allergy LOCK JAW Verified 05/26/21 07:29 [From Compazine] prochlorperazine maleate Allergy LOCK JAW Verified 05/26/21 07:29 [From Compazine] Surgical - Exam Vital Signs Temp Pulse Resp BP Pulse Ox 97.4 F L 94 18 124/67 95 05/26/21 07:40 05/26/21 07:40 05/26/21 07:40 05/26/21 07:40 05/26/21 07:40
[2021-05-26] MEDS ORDERED: POLYETHYLENE GLYCOL LYTES SOLN 4,000 ML SOLN.RECON PO ONE (08:22)
[2021-05-26] MEDS ORDERED: Antibiotics per Pharmacy 1 EACH MISC MISCELLANE PRN (08:22)
[2021-05-26] MEDS ORDERED: SODIUM CHLORIDE 0.9% 2,000 ML IV ONE (08:22)
--- NOTE | 2021-05-26 08:29 | P.PCN ---
Date of Procedure: 05/26/21 Description of Procedure: PREOPERATIVE DIAGNOSIS: Sigmoid diverticulitis POSTOPERATIVE DIAGNOSIS: Sigmoid diverticulitis OPERATION: Colonoscopy to the ascending colon Colonoscopy with cold forceps biopsy SURGEON: Lola Galindo MD. ANESTHESIA: MAC. INDICATIONS: The patient is a 50-year-old female who presents with diverticulitis and abdominal pain. Benefits and risks were described and informed consent was obtained. DESCRIPTION OF PROCEDURE: The patient had undergone S[place]ab prep. The patient had been brought into the operating room and laid in the left lateral decubitus position. After adequate intravenous sedation, the rectum was examined with 2% lidocaine jelly. No external hemorrhoids were encountered. The rectal tone was within normal limits. No lesions were palpated in the rectal vault. An Olympus colonoscope was advanced until the cecum, ileocecal valve and appendiceal orifice were clearly viewed. The prep was good. Severe sigmoid diverticulosis was encountered extending to the descending colon. Colonic polyps were found and removed with cold forceps biopsy No evidence of focal colitis was found. Retroflexion of the scope demonstrated grade 1 internal hemorrhoids without active bleeding or inflammation. The colon was desufflated. The patient had tolerated the procedure well. Withdrawal time was over 6 minutes. FINDINGS: Aronchick preparation quality scale 2 (1-5) Internal hemorrhoids, grade 1 No external prolapsed hemorrhoids. No arteriovenous malformations. Removal of 2 polyps: -Cold forceps biopsy x 2, 30 cm from the anal verge, sigmoid colon Redundant sigmoid colon with severe diverticulosis between 60-30 cm from the anal verge No focal colitis. RECOMMENDATIONS: Lower endoscopy in 3 years2023
[2021-05-26] MEDS: ONDANSETRON 4 MG/2 ML VIAL IVP PRN ×2 (08:55→13:50)
[2021-05-26] MEDS ORDERED: SCOPOLAMINE 1.5MG/72HR PATCH TRANSDERM ONE (08:56)
--- NOTE | 2021-05-26 09:09 | XR ---
EXAMINATION TYPE: XR chest 2V DATE OF EXAM: 05/26/2021 COMPARISON: 11/26/2017 TECHNIQUE: PA and lateral views submitted. HISTORY: Preop FINDINGS: The lungs are clear and there is no pneumothorax, pleural effusion, or focal pneumonia. Heart size normal. No overt failure. Hypertrophic and degenerative change of the spine. IMPRESSION: 1. No acute process.
[2021-05-26] MEDS ORDERED: HYDROcodone/APAP 10-325MG 1 EACH TAB PO ONE (10:43)
[2021-05-26] MEDS: SODIUM CHLORIDE 0.9% 1,000 ML IV SCH ×2 (10:53→21:19)
[2021-05-26] MEDS: SCOPOLAMINE 1.5MG/72HR PATCH TRANSDERM SCH (10:54)
[2021-05-26 10:55] LABS: Basophils # (A) 0.1 k/uL (0-0.2); Basophils % (A) 1 %; Eosinophils # (A) 0.1 k/uL (0-0.7); Eosinophils % (A) 2 %; HCT 40.8 % (34.0-46.0); HGB 13.4 gm/dL (11.4-16.0); Lymphocytes # (A) 1.8 k/uL (1.0-4.8); Lymphocytes % (A) 23 %; MCH 31.2 pg (25.0-35.0); MCHC 32.9 g/dL (31.0-37.0); Mean Platelet Volume 6.9; Monocytes # (A) 0.3 k/uL (0-1.0); Monocytes % (A) 4 %; Neutrophils # (A) 5.4 k/uL (1.3-7.7); Neutrophils % (A) 68 %; Platelet Count 386 k/uL (150-450); RBC 4.29 m/uL (3.80-5.40); RDW 14.2 % (11.5-15.5)
[2021-05-26 11:25] LABS: ALT 18 U/L (4-34); AST 24 U/L (14-36); African American GFR (CKD) >90 (>60 ml/min/1.73 sqM); Albumin 3.9 g/dL (3.5-5.0); Alkaline Phosphatase 104 U/L (38-126); Anion Gap 8 mmol/L; Blood Urea Nitrogen 11 mg/dL (7-17); Calcium 9.6 mg/dL (8.4-10.2); Carbon Dioxide 23 mmol/L (22-30); Chloride 107 mmol/L (98-107); Glucose 103 mg/dL (74-99); Non-African American GFR(CKD) >90 (>60 ml/min/1.73 sqM); Potassium 4.4 mmol/L (3.5-5.1); Sodium 138 mmol/L (137-145); Total Bilirubin 0.2 mg/dL (0.2-1.3); Total Protein 6.8 g/dL (6.3-8.2)
[2021-05-26] MEDS ORDERED: DEXAMETHASONE SOD PHOSPHATE 10 MG/ML 1 ML VIAL IV PRN (14:08)
[2021-05-26] MEDS: HYDROcodone/APAP 10-325MG 1 EACH TAB PO SCH ×3 (15:58→22:39)
[2021-05-26] MEDS: NEOMYCIN 500 MG TAB PO SCH ×3 (17:49→22:40)
[2021-05-26] MEDS: metroNIDAZOLE 500 MG TAB PO SCH ×2 (17:49→22:40)
[2021-05-26] MEDS: ONDANSETRON 4 MG/2 ML VIAL IVP SCH (17:50)
[2021-05-26] MEDS: TRIMETHOBENZAMIDE 100 MG/ML 2 ML VIAL IM PRN (18:13)
[2021-05-26] MEDS: SERTRALINE 50 MG TAB PO SCH (20:24)
[2021-05-26] MEDS: ALPRAZolam 0.5 MG TAB PO PRN (20:24)
[2021-05-26] MEDS ORDERED: TEMAZEPAM 15 MG CAP PO ONE (21:00)
[2021-05-26] MEDS: buPROPion XL 150 MG TAB.ER.24H PO SCH (21:18)
[2021-05-27] MEDS: TRIMETHOBENZAMIDE 100 MG/ML 2 ML VIAL IM PRN ×3 (00:51→21:18)
[2021-05-27] MEDS: ONDANSETRON 4 MG/2 ML VIAL IVP SCH ×4 (00:53→19:15)
[2021-05-27] MEDS ORDERED: ceFAZolin 3 GM in SODIUM CHLORIDE 0.9% 100 ML IVPB PRN (05:00)
[2021-05-27] MEDS: SODIUM CHLORIDE 0.9% 1,000 ML IV SCH ×3 (06:10→17:43)
[2021-05-27] MEDS ORDERED: HEPARIN SODIUM,PORCINE/PF 5,000 UNIT/0.5 ML SYRINGE SQ PRN (07:00)
[2021-05-27] MEDS ORDERED: ACETAMINOPHEN TAB 500 MG TAB PO PRN (07:00)
[2021-05-27] MEDS ORDERED: ALVIMOPAN 12 MG CAPSULE PO PRN (07:00)
[2021-05-27] MEDS ORDERED: MELOXICAM 7.5 MG TAB PO PRN (07:00)
[2021-05-27] MEDS: HYDROcodone/APAP 10-325MG 1 EACH TAB PO SCH ×4 (08:11→23:12)
[2021-05-27] MEDS ORDERED: IV FLUID CONTINUATION 1,000 ML IV ONE ×2 (10:17)
[2021-05-27 10:48] LABS: Glucose,Whole Blood 176 mg/dL (75-99)
[2021-05-27] MEDS: ONDANSETRON 4 MG/2 ML VIAL IVP PRN (10:51)
[2021-05-27] MEDS ORDERED: fentaNYL (PF) 50 MCG/ML 2 ML AMP IVP ONE (10:57)
[2021-05-27] MEDS ORDERED: MIDAZOLAM 2 MG/2 ML VIAL IVP ONE (10:57)
[2021-05-27] MEDS: metroNIDAZOLE-NS PMX 500 MG in SALINE 1 100ML.BAG IVPB PRN ×2 (11:20→11:30)
[2021-05-27] MEDS ORDERED: ROCURONIUM 10 MG/ML (5 ML VIAL) IV ONE (11:28)
[2021-05-27] MEDS ORDERED: ROPIVACAINE 5 MG/ML 30 ML VIAL ONE (11:28)
[2021-05-27] MEDS ORDERED: NEOSTIGMINE 1 MG/ML 10 ML VIAL ONE (11:28)
[2021-05-27] MEDS ORDERED: LIDOCAINE 1% INJ 10MG/ML (20 ML MDV) ONE (11:28)
[2021-05-27] MEDS ORDERED: SUCCINYLCHOLINE CHLORIDE 100 MG/5 ML SYR IV ONE (11:28)
[2021-05-27] MEDS ORDERED: PROPOFOL 10 MG/ML 20 ML VIAL IV ONE (11:28)
[2021-05-27] MEDS ORDERED: GLYCOPYRROLATE 0.2 MG/ML 2 ML VIAL ONE (11:28)
[2021-05-27] MEDS ORDERED: fentaNYL (PF) 50 MCG/ML 2 ML AMP ONE (11:28)
[2021-05-27] MEDS ORDERED: MIDAZOLAM 2 MG/2 ML VIAL ONE (11:28)
[2021-05-27] MEDS ORDERED: SODIUM CHLORIDE 0.9% (PF) 10 ML VIAL ONE (11:28)
[2021-05-27] MEDS ORDERED: HYDROmorphone (PF) 1 MG/ML ONE (11:28)
--- NOTE | 2021-05-27 11:30 | P.ANPRN ---
Procedure Note - Anesthesia - Nerve Block Performed Bilateral Erector Spinae Single Time Out Performed: Yes ([id number]) Date of Procedure: 05/27/21 Procedure Start Time: 10:57 Procedure Stop Time: 11:03 Location of Patient: PreOp Indication: Acute Post-Operative Pain, Requested by Surgeon Specifically requested for management of pain by : Lola Galindo Sedation Type: Sedate with meaningful contact maintained Preparation: Sterile Prep Position: Prone Catheter: None Needle Types: Pajunk Needle Gauge: 21 Ultrasound used to visualize needle placement: Yes Ultrasound used to observe medication spread: Yes Injectate: 0.5% Ropivacaine (see comment for volume) (15cc + NACL 15cc PF each side) Blood Aspirated: No Pain Paresthesia on Injection Noted: No Resistance on Injection: Normal Image Stored and Saved: Yes Events: Uneventful and Well Tolerated
[2021-05-27] MEDS ORDERED: LIDOCAINE 1%-EPI 1:100,000 20 ML VIAL SQ ONE (12:13)
[2021-05-27] MEDS ORDERED: LACTATED RINGERS 1,000 ML IV ONE (13:35)
[2021-05-27] MEDS ORDERED: diphenhydrAMINE 50 MG/ML 1 ML VIAL ONE (15:18)
[2021-05-27] MEDS ORDERED: HYDROmorphone 0.5 MG/0.5 ML SYRINGE IVP ONE ×2 (15:20→15:40)
[2021-05-27] MEDS ORDERED: diphenhydrAMINE 50 MG/ML 1 ML VIAL IVP ONE ×2 (15:22)
[2021-05-27] MEDS ORDERED: BENZOCAINE/MENTHOL LOZENG 1 EACH LOZENGE MUCOUS MEM PRN (15:36)
--- NOTE | 2021-05-27 15:56 | P.OP ---
Date of Procedure: 05/27/21 Description of Procedure: SURGEON: SHELLY STEVEN MD PREOPERATIVE DIAGNOSES: 1. Sigmoid diverticulitis with complications and chronic abdominal pain 2. Bilateral lower abdominal pain 3. Chronic pain syndrome 4. Chronic migraines 5. Morbid obesity due to excess calories, BMI 44.7 POSTOPERATIVE DIAGNOSES: 1. Sigmoid diverticulitis with complications and chronic abdominal pain 2. Bilateral lower abdominal pain 3. Chronic pain syndrome 4. Chronic migraines 5. Morbid obesity due to excess calories, BMI 44.7 6. Severe intra-abdominal pelvic adhesions OPERATION: 1. Robotic-assisted daVinci Xi laparoscopic lysis of adhesions over 1 hour 2. Robotic-assisted daVinci Xi laparoscopic with sigmoid colectomy and low anterior resection using 29mm EEA Ethicon powered stapler 3. Intraoperative colonoscopy for flexible sigmoidoscopy Anesthesia: GETA, local, regional Estimated Blood Loss (ml): 10 Pathology: other (Sigmoid colon, anastomosis) Condition: stable Disposition: floor COMPLICATIONS: None. Operative Findings: 1. Severe sigmoid diverticulitis with pelvic adhesions involving bilateral fallopian tubes and ovaries are car and extensive lysis of adhesions 2. Greater omental adhesions to lower anterior abdominal wall from previous surgeries 3. Internal hernia involving omentum to the pelvis and small bowel to right fallopian tube also lysed INDICATIONS: The patient is a 50-year-old female with chronic abdominal pain due to sigmoid diverticulitis. Surgical intervention was described. Benefits and risks, including infection, bowel injury, ureteral injury, colostomy creation and possibility for additional surgery was discussed at length. Informed consent was obtained. All questions of the patient and family were answered. DESCRIPTION: Earlier the patient had undergone a bowel prep using the enhanced colon recovery program. The patient was transferred to the operating room onto a split leg table and repositioned to modified lithotomy following intubation. A Alonzo catheter was placed. The abdomen was then prepped and draped in standard sterile fashion as Ioban was placed along the abdomen to minimize any contamination of skin floor. After a timeout protocol was performed, attention was then brought to the left upper quadrant whereby a 0 degree 5 mm laparoscopic trocar entry was performed. The abdominal cavity was entered and insufflated to 15 mmHg pressure, which was tolerated well. Diagnostic laparoscopy confirmed severe adhesions omentum to abdominal wall lower midline including bilateral pelvis. Next trocars were placed 20 cm superior from the pelvis. A 12-mm trocar was placed along the right lateral abdominal wall. A 8 mm port was placed along the right upper quadrant. Ports were placed 10 cm apart from each other including 15-20 cm away from the target anatomy of the left pelvis. An 8-mm port was was placed along the left upper quadrant. The stapler 12-mm port was arranged along the left lateral abdominal wall. The patient was then placed in Trendelenburg position, at least 21. The robotic da Edil XI system was primed. The robot was docked from the right side of the patient. Using atraumatic graspers and vessel sealer, the robotic system was docked and primed as described. Instruments were interchanged by the medical assistant supervisor including needle school bus driver/custodian, clip medical territory manager, hook cautery, robotic stapler and vessel sealer. The robot stapler was prepared along the right lateral abdominal wall. Initial attention was brought to lysis of adhesions involving the pelvis including lower midline. Lysis of adhesions were performed using vessel sealer, hook cautery and blunt dissection to address the greater omental adhesions inclu ding colon to the bilateral ovaries and deep pelvis. Internal hernia involving small bowel to abdominal wall of the right lower quadrant and fallopian tubes including omentum to sigmoid colon were lysed. Extensive lysis of adhesions over 1 hour was performed. Next, attention was brought to sigmoid colon. The sigmoid mesentery was mobilized using a vessel sealer. Using robot stapler 60 mm green loads, the descending colon was divided. Mobilization of the colon was performed to the pelvic brim along the sacral promontory. The mesentery of the sigmoid colon was mobilized towards the descending colon using a vessel sealer. Next, the top of the rectum was divided using robotic stapler 60 mm green loads. The rest of the sigmoid colon mesentery was mobilized using vessel sealer. Additionally, the sigmoid colon was mobilized onto the colon to minimize injury to the ureters. I went to the foot of the bed for selection of a sizer. A colorectal colon anastomosis with an EEA 29-mm was selected after using a sizer along the rectum. For the proximal sigmoid colon, a 29-mm anvil was placed after creating a colotomy then closed using a stapler at the distal end. The robot arms were temporarily undocked. A stapler was entered along the rectum and mated to the anvil for 1 minute. The anastomosis was created. The donuts were thick on the rectum side and then on the colon side. I then performed a bedside flexible sigmoidoscopy using colonoscope where no leaks or defects were confirmed as the medical assistant supervisor placed normal saline along the pelvis. I re-scrubbed into the case. Irrigation fluid was suctioned from the abdomen. The robot was undocked. All needles were removed from the abdominal cavity. Via the left lateral 12-mm trocar site, the resected colon was retrieved after widening the skin incision to 4-cm. The fascial defect was oversewn using 0 Vicryl and a Anupam Rg. All incisions were cleansed using dilute normal saline and hydrogen peroxide mixture. Next all pneumoperitoneum was evacuated from the abdominal cavity. The 8-mm trocar sites were reapproximated using 4-0 Monocryl in an interrupted subcuticular fashion. Local anesthetic was infiltrated to all wounds for postop analgesia. All incisions were also cleansed with diluted hydrogen peroxide. An Optifoam surgical dressing was placed over the colon extraction site. Exofin was applied to the rest of the skin incisions. The patient was extubated successfully. The patient was transferred to the postanesthesia care unit in stable condition.
[2021-05-27] MEDS ORDERED: ONDANSETRON 4 MG/2 ML VIAL IVP ONE (16:00)
[2021-05-27] MEDS: HYDROmorphone 1 MG/ML 1 ML SYRINGE IVP PRN (16:48)
[2021-05-27] MEDS ORDERED: ACETAMINOPHEN IV (For NPO) 1,000 MG in EMPTY BAG 1 BAG IVPB PRN (18:00)
[2021-05-27] MEDS: KETOROLAC 15 MG/ML 1 ML VIAL IVP SCH (19:09)
[2021-05-27 20:20] LABS: Creatine Kinase 170 U/L (30-135)
[2021-05-27] MEDS: SERTRALINE 50 MG TAB PO SCH (20:29)
[2021-05-27] MEDS: buPROPion XL 150 MG TAB.ER.24H PO SCH (20:29)
[2021-05-27] MEDS: ALPRAZolam 0.5 MG TAB PO PRN (20:29)
[2021-05-27] MEDS: ceFAZolin 3 GM in SODIUM CHLORIDE 0.9% 100 ML IVPB SCH (20:30)
[2021-05-27 20:33] LABS: Creatine Kinase MB 1.1 ng/mL (0.0-2.4); Troponin I <0.012 ng/mL (0.000-0.034)
[2021-05-27] MEDS ORDERED: ALVIMOPAN 12 MG CAPSULE PO SCH (21:00)
[2021-05-27] MEDS: metroNIDAZOLE-NS PMX 500 MG in SALINE 1 100ML.BAG IVPB SCH (21:35)
[2021-05-27] MEDS: SIMETHICONE 40 MG/0.6 ML DROPS 2,000 MG/30 ML BOTTLE PO SCH (23:08)
[2021-05-28] MEDS: ONDANSETRON 4 MG/2 ML VIAL IVP SCH ×5 (00:42→17:47)
[2021-05-28] MEDS: KETOROLAC 15 MG/ML 1 ML VIAL IVP SCH ×4 (00:49→18:26)
[2021-05-28] MEDS: SODIUM CHLORIDE 0.9% 1,000 ML IV SCH ×4 (00:53→21:12)
[2021-05-28] MEDS: ceFAZolin 3 GM in SODIUM CHLORIDE 0.9% 100 ML IVPB SCH ×2 (03:40→12:17)
[2021-05-28] MEDS: ALPRAZolam 0.5 MG TAB PO PRN ×2 (05:09→21:56)
[2021-05-28] MEDS: metroNIDAZOLE-NS PMX 500 MG in SALINE 1 100ML.BAG IVPB SCH ×2 (05:09→13:54)
[2021-05-28 05:53] LABS: Basophils % (A) 0 %; Eosinophils % (A) 0 %; HCT 38.7 % (34.0-46.0); HGB 13.1 gm/dL (11.4-16.0); Lymphocytes # (A) 1.1 k/uL (1.0-4.8); Lymphocytes % (A) 7 %; MCH 31.6 pg (25.0-35.0); MCHC 33.7 g/dL (31.0-37.0); MCV 93.7 fL (80.0-100.0); Mean Platelet Volume 7.4; Monocytes # (A) 0.6 k/uL (0-1.0); Monocytes % (A) 4 %; Neutrophils # (A) 14.5 k/uL (1.3-7.7); Neutrophils % (A) 89 %; Platelet Count 353 k/uL (150-450); RBC 4.13 m/uL (3.80-5.40); RDW 13.6 % (11.5-15.5); WBC 16.4 k/uL (3.8-10.6)
[2021-05-28] MEDS: LACTATED RINGERS 1,000 ML IV SCH (05:55)
[2021-05-28] MEDS: HYDROmorphone 1 MG/ML 1 ML SYRINGE IVP PRN (08:24)
[2021-05-28] MEDS: SIMETHICONE 40 MG/0.6 ML DROPS 2,000 MG/30 ML BOTTLE PO SCH ×4 (08:25→21:10)
[2021-05-28] MEDS: ALVIMOPAN 12 MG CAPSULE PO SCH ×2 (08:26→21:17)
--- NOTE | 2021-05-28 10:06 | P.PN ---
Subjective Progress Note Date: 05/28/21 Principal diagnosis: Status post colectomy Patient was having chest pain last night. That is mostly resolved. Some nausea. No vomiting. She did have a bowel movement. States she has not appeared to go home today. White blood cell count 16.4, hemoglobin 13. Patient requesting Reglan and Benadryl. Objective - Vital Signs Vital signs: Vital Signs Temp 98.5 F 05/28/21 05:00 Pulse 90 05/28/21 05:00 Resp 16 05/28/21 05:00 BP 151/89 05/28/21 05:00 Pulse Ox 99 05/28/21 05:00 Intake & Output 05/27/21 05/28/21 05/28/21 18:59 06:59 18:59 Intake Total 1500 1960 Output Total 510 3100 500 Balance 990 -1140 -500 Intake: IV 1500 Intake, IV Titration 1960 Amount Sodium Chloride 0.9% 1, 1560 000 ml @ 130 mls/hr IV . Q7H42M [facility] Rx#:[id number] ceFAZolin 3 gm In Sodium 100 Chloride 0.9% 100 ml @ 200 mls/hr IVPB ONCE PRN Rx#:[id number] ceFAZolin 3 gm In Sodium 100 Chloride 0.9% 100 ml @ 200 mls/hr IVPB Q8H [facility] Rx#:[id number] metroNIDAZOLE-NS PMX 500 100 mg In Saline 1 100ml.bag @ 100 mls/hr IVPB ONCE PRN Rx#:[id number] metroNIDAZOLE-NS PMX 500 100 mg In Saline 1 100ml.bag @ 100 mls/hr IVPB Q8H [facility] Rx#:[id number] Output: Urine 500 3100 500 Estimated Blood Loss 10 Other: Voiding Method Indwelling Catheter Indwelling Catheter # Voids 1 # Bowel Movements 0 - Exam Abdomen: Soft, nondistended, mild tenderness, incisions clean and dry - Labs CBC & Chem 7: 05/28/21 05:23 05/26/21 10:38 Labs: Abnormal Lab Results - Last 24 Hours (Table) 05/19/21 05/27/21 05/27/21 Range/Units 10:54 10:43 19:43 WBC (3.8-10.6) k/uL Neutrophils # (1.3-7.7) k/uL Sodium 136 L (137-145) mmol/L Potassium 5.3 H (3.5-5.1) mmol/L Carbon Dioxide 19 L (22-30) mmol/L BUN 20 H (7-17) mg/dL Glucose 149 H (74-99) mg/dL POC Glucose (mg/dL) 176 H (75-99) mg/dL Alkaline Phosphatase 131 H (38-126) U/L Total Creatine Kinase 170 H (30-135) U/L 05/28/21 Range/Units 05:23 WBC 16.4 H (3.8-10.6) k/uL Neutrophils # 14.5 H (1.3-7.7) k/uL Sodium (137-145) mmol/L Potassium (3.5-5.1) mmol/L Carbon Dioxide (22-30) mmol/L BUN (7-17) mg/dL Glucose (74-99) mg/dL POC Glucose (mg/dL) (75-99) mg/dL Alkaline Phosphatase (38-126) U/L Total Creatine Kinase (30-135) U/L Assessment and Plan (1) Diverticulitis Narrative/Plan: Patient doing fairly well postoperative. Recheck labs tomorrow. Add Benadryl and when necessary low-dose Reglan. Ambulate. Current Visit: Yes Status: Acute Code(s): K57.92 - DVTRCLI OF INTEST, PART UNSP, W/O PERF OR ABSCESS W/O BLEED SNOMED Code(s): 566309569
[2021-05-28 10:27] LABS: African American GFR (CKD) 116.3 (60.0-200.0); Anion Gap 16.1 mmol/L (4.00-12.00); Carbon Dioxide 16.9 mmol/L (21.6-31.8); Non-African American GFR(CKD) 100.3 (60.0-200.0); Potassium 4.2 mmol/L (3.5-5.5)
[2021-05-28] MEDS: HYDROcodone/APAP 10-325MG 1 EACH TAB PO SCH ×4 (11:06→21:17)
[2021-05-28] MEDS: diphenhydrAMINE 50 MG/ML 1 ML VIAL IVP PRN ×2 (12:16→18:25)
[2021-05-28] MEDS: METOCLOPRAMIDE 5 MG/ML 2 ML VIAL IVP PRN ×2 (12:16→18:23)
[2021-05-28] MEDS: buPROPion XL 150 MG TAB.ER.24H PO SCH (21:09)
[2021-05-28] MEDS: SERTRALINE 50 MG TAB PO SCH (21:09)
[2021-05-29] MEDS: KETOROLAC 15 MG/ML 1 ML VIAL IVP SCH ×4 (02:35→21:57)
[2021-05-29] MEDS: ONDANSETRON 4 MG/2 ML VIAL IVP SCH ×4 (02:36→17:28)
[2021-05-29] MEDS: SODIUM CHLORIDE 0.9% 1,000 ML IV SCH ×4 (02:36→21:49)
[2021-05-29] MEDS: diphenhydrAMINE 50 MG/ML 1 ML VIAL IVP PRN ×3 (02:48→16:13)
[2021-05-29] MEDS: METOCLOPRAMIDE 5 MG/ML 2 ML VIAL IVP PRN ×3 (02:49→16:13)
[2021-05-29] MEDS: LACTATED RINGERS 1,000 ML IV SCH (06:09)
[2021-05-29 06:34] LABS: Basophils # (A) 0.1 k/uL (0-0.2); Basophils % (A) 1 %; Eosinophils # (A) 0.1 k/uL (0-0.7); Eosinophils % (A) 2 %; HCT 39.1 % (34.0-46.0); Lymphocytes % (A) 21 %; MCH 31.4 pg (25.0-35.0); MCHC 33.3 g/dL (31.0-37.0); MCV 94.4 fL (80.0-100.0); Mean Platelet Volume 7.3; Monocytes # (A) 0.5 k/uL (0-1.0); Monocytes % (A) 5 %; Neutrophils # (A) 6.6 k/uL (1.3-7.7); Neutrophils % (A) 70 %; Platelet Count 317 k/uL (150-450); RBC 4.15 m/uL (3.80-5.40); RDW 13.8 % (11.5-15.5); WBC 9.4 k/uL (3.8-10.6)
[2021-05-29] MEDS: SIMETHICONE 40 MG/0.6 ML DROPS 2,000 MG/30 ML BOTTLE PO SCH ×4 (09:05→21:49)
[2021-05-29] MEDS: ALVIMOPAN 12 MG CAPSULE PO SCH (09:05)
[2021-05-29 09:38] LABS: African American GFR (CKD) 116.3 (60.0-200.0); BUN/Creat Ratio 15.71 Ratio (12.00-20.00); Calcium 8.8 mg/dL (8.7-10.3); Non-African American GFR(CKD) 100.3 (60.0-200.0); Potassium 3.5 mmol/L (3.5-5.5)
[2021-05-29] MEDS: SCOPOLAMINE 1.5MG/72HR PATCH TRANSDERM SCH ×3 (09:38→11:44)
[2021-05-29] MEDS: HYDROcodone/APAP 10-325MG 1 EACH TAB PO SCH ×6 (09:38→21:56)
--- NOTE | 2021-05-29 09:44 | P.PN ---
Subjective Progress Note Date: 05/29/21 Principal diagnosis: Status post colectomy Patient says her pain is improved today. Apparently the first several bowel movements she had were bloody. The last moment she did not seen any blood. She is afebrile with stable vital signs. White blood cell count is normal and hem oglobin is 13. Patient states she is not sure if she is comfortable going home yet are not since its early in the morning. Objective - Vital Signs Vital signs: Vital Signs Temp 98.5 F 05/29/21 04:54 Pulse 82 05/29/21 04:54 Resp 18 05/29/21 04:54 BP 121/69 05/29/21 04:54 Pulse Ox 96 05/29/21 07:47 Intake & Output 05/28/21 05/29/21 05/29/21 18:59 06:59 18:59 Output Total 1100 Balance -1100 Output: Urine 1100 Other: Voiding Method Toilet # Voids 2 - Exam Abdomen: Soft, nondistended, mild tenderness, incisions clean and dry - Labs CBC & Chem 7: 05/29/21 06:00 05/29/21 06:00 Labs: Abnormal Lab Results - Last 24 Hours (Table) 05/28/21 Range/Units 05:23 Sodium 131 L (135-145) mmol/L Carbon Dioxide 16.9 L (21.6-31.8) mmol/L Anion Gap 16.10 H (4.00-12.00) mmol/L BUN 7.0 L (9.0-27.0) mg/dL BUN/Creatinine Ratio 10.00 L (12.00-20.00) Ratio Glucose 136 H (70-110) mg/dL Assessment and Plan (1) Diverticulitis Narrative/Plan: Patient doing better than yesterday. Advance diet to full liquids. Ambulate. Possible discharge later today. Current Visit: Yes Status: Acute Code(s): K57.92 - DVTRCLI OF INTEST, PART UNSP, W/O PERF OR ABSCESS W/O BLEED SNOMED Code(s): 788279481
[2021-05-29 19:46] VITALS: RESP 20
[2021-05-29] MEDS: ALPRAZolam 0.5 MG TAB PO PRN (21:49)
[2021-05-29] MEDS: SERTRALINE 50 MG TAB PO SCH (21:49)
[2021-05-29] MEDS: buPROPion XL 150 MG TAB.ER.24H PO SCH (21:51)
[2021-05-29] MEDS: HYDROmorphone 1 MG/ML 1 ML SYRINGE IVP PRN (21:57)
[2021-05-30] MEDS: LACTATED RINGERS 1,000 ML IV SCH (00:19)
[2021-05-30] MEDS: ONDANSETRON 4 MG/2 ML VIAL IVP SCH ×2 (01:12→05:17)
[2021-05-30] MEDS: HYDROmorphone 1 MG/ML 1 ML SYRINGE IVP PRN (01:16)
[2021-05-30] MEDS: SIMETHICONE 40 MG/0.6 ML DROPS 2,000 MG/30 ML BOTTLE PO SCH ×2 (04:32→07:25)
[2021-05-30 04:47] VITALS: TEMP 97.9
[2021-05-30 04:52] VITALS: BP 125/80; PULSE 72
[2021-05-30] MEDS: HYDROcodone/APAP 10-325MG 1 EACH TAB PO SCH (07:24)
--- NOTE | 2021-05-30 19:45 | P.DS ---
Providers Date of admission: 05/27/21 13:29 Expected date of discharge: 05/30/21 Attending physician: Lola Galindo Primary care physician: Shashi Harris - Discharge Diagnosis(es) (1) Sigmoid diverticulitis Status: Acute (2) Morbid obesity due to excess calories Status: Acute (3) BMI 40.0-44.9, adult Status: Acute (4) Peritoneal adhesions Status: Acute (5) Generalized anxiety disorder Status: Acute Hospital Course: POSTOPERATIVE DIAGNOSES: 1. Sigmoid diverticulitis with complications and chronic abdominal pain 2. Bilateral lower abdominal pain 3. Chronic pain syndrome 4. Chronic migraines 5. Morbid obesity due to excess calories, BMI 44.7 6. Severe intra-abdominal pelvic adhesions COURSE: The patient is a 50-year-old female with complicated diverticulitis. She underwent lower anterior sigmoid resection. Postoperatively, she was passing flatus and having bowel movements. Pain was controlled. She was tolerating a low fiber diet. REVIEW OF ORGAN SYSTEMS: No fevers or chills. No nausea and vomiting. Having bowel movements. No chest pain. PHYSICAL EXAM: VITAL SIGNS: Stable GENERAL: Well-developed pleasant in no acute distress. HEENT: No scleral icterus. Extraocular movements grossly intact. Moist buccal mucosa. NECK: Supple without lymphadenopathy. CHEST: Unlabored respirations. Equal bilateral excursions. CARDIOVASCULAR: Regular rate and rhythm. Distal 2+ pulses. ABDOMEN: Incisions clean dry and intact. Dressing clean dry and intact. MUSCULOSKELETAL: No clubbing, cyanosis, or edema. NERUO: Cranial nerves 2-12 grossly intact. PSYCH: Alert and oriented to person place and time. ASSESSMENT: 1. Complicated sigmoid diverticulitis. PLAN: 1. Discharge instructions were reviewed. 2. Patient was stable for discharge Procedures: OPERATION: 1. Robotic-assisted daVinci Xi laparoscopic lysis of adhesions over 1 hour 2. Robotic-assisted daVinci Xi laparoscopic with sigmoid colectomy and low anterior resection using 29mm EEA Ethicon powered stapler 3. Intraoperative colonoscopy for flexible sigmoidoscopy Anesthesia: GETA, local, regional Estimated Blood Loss (ml): 10 Pathology: other (Sigmoid colon, anastomosis) Condition: stable Disposition: floor COMPLICATIONS: None. Operative Findings: 1. Severe sigmoid diverticulitis with pelvic adhesions involving bilateral fallopian tubes and ovaries are car and extensive lysis of adhesions 2. Greater omental adhesions to lower anterior abdominal wall from previous surgeries 3. Internal hernia involving omentum to the pelvis and small bowel to right fallopian tube also lysed Patient Condition at Discharge: Good Plan - Discharge Summary Discharge Rx Participant: Yes New Discharge Prescriptions: New Ibuprofen 800 mg PO Q8HR PRN #30 tablet PRN Reason: Pain Simethicone [Gas-X] 125 mg PO AC-TID PRN #20 cap PRN Reason: Pain Continue ALPRAZolam [Xanax] 1 mg PO QID PRN PRN Reason: Anxiety Sertraline [Zoloft] 50 mg PO HS HYDROcodone/APAP 10-325MG [[place] 10-325] 1 tab PO QID Acyclovir 400 mg PO DAILY Ibuprofen [Motrin] 800 mg PO Q8H PRN PRN Reason: Pain buPROPion HCL [buPROPion HCL Xl] 150 mg PO HS Discontinued Ammonium Lactate Cream [Lac-Hydrin 12% Cream] 1 applic TOPICAL BID PRN PRN Reason: Skin Disorder Betamethasone Dipropionate [Diprolene AF 0.05% Cream] 1 applic TOPICAL BID PRN PRN Reason: skin disorder Discharge Medication List ALPRAZolam [Xanax] 1 mg PO QID PRN 05/03/14 [History] HYDROcodone/APAP 10-325MG [[place] 10-325] 1 tab PO QID 11/14/17 [History] Sertraline [Zoloft] 50 mg PO HS 11/14/17 [History] Acyclovir 400 mg PO DAILY 04/22/18 [History] Ibuprofen [Motrin] 800 mg PO Q8H PRN 11/22/20 [History] buPROPion HCL [buPROPion HCL Xl] 150 mg PO HS 05/20/21 [History] Ibuprofen 800 mg PO Q8HR PRN #30 tablet 05/27/21 [Rx] Simethicone [Gas-X] 125 mg PO AC-TID PRN #20 cap 05/27/21 [Rx] Follow up Appointment(s)/Referral(s): Lola Galindo MD [STAFF PHYSICIAN] - 05/31/21 (2 pm May 31) Patient Instructions/Handouts: *[facility] - Managing Your Pain After Surgery Without Opioids, Ibuprofen (By mouth), Simethicone (By mouth), Diverticulitis (DC), Low Fiber Diet (DC), Laparoscopic Bowel Resection (DC), Abdominal Binder (DC), Colectomy Diet (DC) Activity/Diet/Wound Care/Special Instructions: Wear abdominal binder at all times for comfort. Please notify your pain specialist for narcotic pain meds. No lifting over 4 pounds in 4 weeks until June 26. January shower. No bath tub soaks for two weeks until Jun 10 Avoid steak, tough meats and seeds such as raspberry seeds. No driving while on narcotics. Use Tylenol and ibuprofen scheduled for the next 24-48 hours for best pain relief. Use ice along incisions for today to prevent swelling. Discharge Disposition: HOME SELF-CARE
== END 2021-05-30 12:10 | disposition home or self-care (01) | DRG 330 ==
LOC: ORWHC2ENDO 07:08 → 5NMEDONC 08:21 → ORWHC2ENDO 05-27 13:29
PROVIDERS: ADMIT Surgery Plastic and Reconstructive Surgery; ATTEND Surgery Plastic and Reconstructive Surgery
PROC: 0DBN8ZX Excision of Sigmoid Colon, Via Natural or Artificial Opening Endoscopic, Diagnostic (ICD-10-PCS; 2021-05-26)
PROC: 0UN24ZZ Release Bilateral Ovaries, Percutaneous Endoscopic Approach (ICD-10-PCS; 2021-05-27)
PROC: 0DNU4ZZ Release Omentum, Percutaneous Endoscopic Approach (ICD-10-PCS; 2021-05-27)
PROC: 0UN74ZZ Release Bilateral Fallopian Tubes, Percutaneous Endoscopic Approach (ICD-10-PCS; 2021-05-27)
PROC: 8E0W4CZ Robotic Assisted Procedure of Trunk Region, Percutaneous Endoscopic Approach (ICD-10-PCS; 2021-05-27)
PROC: 0DJD8ZZ Inspection of Lower Intestinal Tract, Via Natural or Artificial Opening Endoscopic (ICD-10-PCS; 2021-05-27)
PROC: 0DTN0ZZ Resection of Sigmoid Colon, Open Approach (ICD-10-PCS; principal; 2021-05-27 12:20)
DX: K57.32 Diverticulitis of large intestine without perforation or abscess without bleeding (principal); Z68.41 Body mass index [BMI] 40.0-44.9, adult; E66.01 Morbid (severe) obesity due to excess calories; I71.9 Aortic aneurysm of unspecified site, without rupture; Z20.822 Contact with and (suspected) exposure to COVID-19; K64.0 First degree hemorrhoids; K63.5 Polyp of colon; K66.0 Peritoneal adhesions (postprocedural) (postinfection); N73.6 Female pelvic peritoneal adhesions (postinfective); K45.8 Other specified abdominal hernia without obstruction or gangrene; G89.4 Chronic pain syndrome; M25.551 Pain in right hip; M25.552 Pain in left hip; M54.9 Dorsalgia, unspecified; G43.909 Migraine, unspecified, not intractable, without status migrainosus; J45.909 Unspecified asthma, uncomplicated; F41.1 Generalized anxiety disorder; M19.90 Unspecified osteoarthritis, unspecified site; L30.9 Dermatitis, unspecified; Z87.891 Personal history of nicotine dependence; Z79.891 Long term (current) use of opiate analgesic; Z79.899 Other long term (current) drug therapy; Z87.01 Personal history of pneumonia (recurrent); Z87.19 Personal history of other diseases of the digestive system; Z98.891 History of uterine scar from previous surgery; Z87.42 Personal history of other diseases of the female genital tract; Z98.890 Other specified postprocedural states; Z82.49 Family history of ischemic heart disease and other diseases of the circulatory system; Z83.2 Family history of diseases of the blood and blood-forming organs and certain disorders involving the immune mechanism
CPT/HCPCS: 45380; 64999; 71046; 80048; 80053; 80307; 82550; 82553; 84484; 85025; 85027; 86850; 86900; 86901; 87635; 88305; 88307; 93005; 94760

== ENCOUNTER → 2021-06-09 | Outpatient (CLI) | payer OTHER ==
[2021-06-09 11:53] VITALS: BP 102/77; PULSE 85; RESP 16; TEMP 97.7
[2021-06-09] MEDS: SODIUM CHLORIDE 0.9% 1,000 ML IV SCH ×2 (11:54→12:49)
== END ==
LOC: PROCWHC3 11:21
PROVIDERS: ATTEND Surgery Plastic and Reconstructive Surgery
DX: E86.0 Dehydration (principal); F17.200 Nicotine dependence, unspecified, uncomplicated; Z88.8 Allergy status to other drugs, medicaments and biological substances
CPT/HCPCS: 96360; 96361

== ENCOUNTER 2021-06-14 10:30 | Emergency (ER) | payer OTHER ==
--- NOTE | 2021-06-14 12:28 | XR ---
2 view abdomen HISTORY: Abdominal pain 2 views of the abdomen on 4 images, correlation to prior exam 08/21/2011 The lung bases are clear. Postop changes are noted to the gastroesophageal junction. Degenerative dis c changes are present in the visualized spine. There are air-fluid levels present without bowel diste ntion. Probable vascular calcifications as well as postoperative changes, bowel suture are noted with in the pelvis. IMPRESSION: Findings could be due to ileus or enteritis rather than obstruction, follow-up as indicat ed.
[2021-06-14] MEDS ORDERED: MORPHINE SULFATE 4 MG/ML SYRINGE IV STA (13:29)
[2021-06-14] MEDS ORDERED: ONDANSETRON 4 MG/2 ML VIAL IVP STA (13:29)
[2021-06-14] MEDS ORDERED: SODIUM CHLORIDE 0.9% 1,000 ML IV STA (13:29)
[2021-06-14 14:16] LABS: Basophils # (A) 0.1 k/uL (0-0.2); Basophils % (A) 2 %; Eosinophils # (A) 0.5 k/uL (0-0.7); Eosinophils % (A) 6 %; HCT 37.8 % (34.0-46.0); HGB 12.4 gm/dL (11.4-16.0); Lymphocytes # (A) 1.9 k/uL (1.0-4.8); Lymphocytes % (A) 23 %; MCH 31.4 pg (25.0-35.0); MCHC 32.9 g/dL (31.0-37.0); MCV 95.4 fL (80.0-100.0); Mean Platelet Volume 7.4; Monocytes # (A) 0.4 k/uL (0-1.0); Monocytes % (A) 5 %; Neutrophils # (A) 5.1 k/uL (1.3-7.7); Neutrophils % (A) 63 %; Platelet Count 363 k/uL (150-450); RBC 3.96 m/uL (3.80-5.40); RDW 13.9 % (11.5-15.5); WBC 8.2 k/uL (3.8-10.6)
[2021-06-14 14:30] LABS: ALT 35 U/L (4-34); AST 41 U/L (14-36); African American GFR (CKD) >90 (>60 ml/min/1.73 sqM); Albumin 3.9 g/dL (3.5-5.0); Alkaline Phosphatase 107 U/L (38-126); Amylase 43 U/L (30-110); Anion Gap 8 mmol/L; Blood Urea Nitrogen 17 mg/dL (7-17); Calcium 9.6 mg/dL (8.4-10.2); Carbon Dioxide 25 mmol/L (22-30); Chloride 101 mmol/L (98-107); Glucose 90 mg/dL (74-99); Lipase 72 U/L (23-300); Non-African American GFR(CKD) >90 (>60 ml/min/1.73 sqM); Sodium 134 mmol/L (137-145); Total Bilirubin 0.5 mg/dL (0.2-1.3)
[2021-06-14 14:32] LABS: INR 0.9 (<1.2); Partial Thromboplastin Time 25.9 sec (22.0-30.0); Prothrombin Time 9.9 sec (9.0-12.0)
[2021-06-14 14:39] LABS: Appearance,Urine Clear (Clear); Bilirubin,Urine Negative (Negative); Blood,Urine Negative (Negative); Color,Urine Light Yellow; Glucose,Urine (UA) Negative (Negative); Ketones,Urine Negative (Negative); Leukocyte Esterase,Urine Negative (Negative); Nitrite,Urine Negative (Negative); Protein,Urine Negative (Negative); Specific Gravity,Urine 1.018 (1.001-1.035); Urobilinogen,Urine <2.0 mg/dL (<2.0)
[2021-06-14 14:43] LABS: Potassium 4.9 mmol/L (3.5-5.1)
--- NOTE | 2021-06-14 15:09 | CT ---
EXAMINATION TYPE: CT abdomen pelvis w con DATE OF EXAM: 06/14/2021 COMPARISON: 11/09/2020 HISTORY: Pain post Bowel resection. CT DLP: 2484.9 mGycm CONTRAST: CT scan of the abdomen and pelvis is performed without Oral Contrast and with IV Contrast, patient in jected with 100 mL of Isovue 300. FINDINGS: LUNG BASES-: No visible nodule. No infiltrate. LIVER/GB: The gallbladder is surgically absent. No space occupying hepatic lesion. Biliary tree is of normal caliber. PANCREAS: No inflammation. No distinct mass. SPLEEN: No splenic enlargement. No lesion seen. ADRENALS: No nodule. No thickening. KIDNEYS/BLADDER: No hydronephrosis. No nephrolithiasis. No distinct renal mass. Urinary bladder g rossly unremarkable. BOWEL: Normal appendix. Resection sigmoid colon. No evidence for leak or inflammatory change. No evid ence for free air. Postsurgical change about the epigastrium as well. Mild small bowel ileus suggeste d. GENITAL ORGANS: No gross abnormality. LYMPH NODES: No greater than 1cm abdominal or pelvic lymph nodes are appreciated. AORTA: No significant abnormality. OSSEOUS STRUCTURES: No significant abnormality is seen. OTHER: No significant additional abnormality is seen. IMPRESSION: 1. Postoperative changes about the sigmoid colon. No evidence for leak or abscess. No free air eviden t at this time. Mild small bowel ileus suggested.
--- NOTE | 2021-06-14 15:40 | ED ---
General Adult HPI - General Chief complaint: Recheck/Abnormal Lab/Rx Stated complaint: Post surg issues Time Seen by Provider: 06/14/21 13:18 Source: patient, RN notes reviewed, old records reviewed Mode of arrival: ambulatory Limitations: no limitations - History of Present Illness Initial comments: Patient is a 50-year-old female presenting to the emergency Department with complaints of abdominal pain over the past week. Patient is to half weeks post op abdominal surgery with Dr. Galindo or diverticulitis, adhesion removal. She had her sigmoid colon removed. Patient states she has been doing well except for some intermittent sharp pains over the past 2 weeks. She did have a follow-up with Dr. Galindo who recommended continuing with her pain medicine and increasing her fluid intake. She states over the past 2 days she's been having more pain in the center of her abdomen and there are office recommended coming into the ER for evaluation. She denies any fevers or chills, her bowel movements have been regular. She denies any nausea or vomiting. She does admit to multiple dental surgeries and her past including C-sections, hernia repairs, ectopic pregnancies. Patient denies any chest pain or shortness of breath, no cough or congestion. She has no further complaints at this time. Upon arrival to the ER, her vitals are stable. - Related Data Home Medications Medication Instructions Recorded Confirmed HYDROcodone/APAP 10-325MG [[place] 1 tab PO QID 11/14/17 06/14/21 10-325] Sertraline [Zoloft] 50 mg PO HS 11/14/17 06/14/21 Acyclovir 400 mg PO DAILY 04/22/18 06/14/21 buPROPion HCL [buPROPion HCL Xl] 150 mg PO HS 05/20/21 06/14/21 ALPRAZolam [Xanax] 1 mg PO TID PRN 06/14/21 06/14/21 Lidocaine 5% Patch [Lidoderm 5% 1 patch TOPICAL DAILY PRN 06/14/21 06/14/21 Patch] Previous Rx's Medication Instructions Recorded Ibuprofen 800 mg PO Q8HR PRN #30 tablet 05/27/21 Simethicone [Gas-X] 125 mg PO AC-TID PRN #20 cap 05/27/21 Allergies Allergy/AdvReac Type Severity Reaction Status Date / Time prochlorperazine edisylate AdvReac LOCK JAW Verified 06/14/21 14:09 [From Compazine] prochlorperazine maleate AdvReac LOCK JAW Verified 06/14/21 14:09 [From Compazine] Review of Systems ROS Statement: Those systems with pertinent positive or pertinent negative responses have been documented in the HPI. ROS Other: All systems not noted in ROS Statement are negative. Past Medical History Past Medical History: Pneumonia Additional Past Medical History / Comment(s): Chronic back pain, migraines, CHOLECYSTITIS History of Any Multi-Drug Resistant Organisms: None Reported Past Surgical History: Bowel Resection, Section, Hernia Repair Additional Past Surgical History / Comment(s): ectopic , intussusceptionSX, 05/27/21 sigmoid colectomy Past Anesthesia/Blood Transfusion Reactions: Motion Sickness Past Psychological History: Anxiety Smoking Status: Former smoker Past Alcohol Use History: Occasional Past Drug Use History: None Reported - Past Family History Mother Family Medical History: No Reported History Additional Family Medical History / Comment(s): by suicide Brother(s) Family Medical History: Deep Vein Thrombosis (DVT), Myocardial Infarction (NE) Father Family Medical History: Congestive Heart Failure (CHF) General Exam - General Exam Comments Initial Comments: GENERAL: Patient is well-developed and well-nourished. Patient is nontoxic and in no acute distress. HEAD: Atraumatic, normocephalic. EYES: Pupils equal round and reactive to light, extraocular movements intact, sclera anicteric, conjunctiva are normal. Eyelids were unremarkable. ENT: Nares patent, oropharynx clear without exudates. Moist mucous membranes. NECK: Normal range of motion, supple without lymphadenopathy or JVD. LUNGS: Unlabored respirations. Breath sounds clear to auscultation bilaterally and equal. No wheezes rales or rhonchi. HEART: Regular rate and rhythm without murmurs, rubs or gallops. ABDOMEN: Soft, mildly tender of the mid to lower abdomen, normoactive bowel sounds. No guarding, no rebound. No masses appreciated. : Deferred MUSCULOSKELETAL: Normal extremities with adequate strength and normal range of motion, no pitting or edema. No clubbing or cyanosis. NEUROLOGICAL: Patient is alert and oriented x 3. Motor and sensory are also intact. Cranial nerves II through XII grossly intact. Symmetrical smile. Normal speech, normal gait. PSYCH: Normal mood, normal affect. SKIN: Warm, Dry, normal turgor, no rashes. Surgical scars on abdomen look well healed, no signs of infection. Limitations: no limitations Course Vital Signs 06/14/21 10:51 Temperature 98.6 F Pulse Rate 88 Respiratory 20 Rate Blood Pressure 155/95 O2 Sat by Pulse 96 Oximetry Medical Decision Making - Medical Decision Making Patient is a 50-year-old female, 2-1/2 weeks post op sigmoid colon removal secondary to diverticulitis and multiple abdominal adhesions with Dr. Galindo. Surgery was on 05/27/2021. She is complaining of increase in abdominal pain. No fevers, vital signs are stable. Her scars look well-healed, no signs of infection. Labs are all within normal limits including a normal white count, normal hemoglobin, kidney function is stable, urine shows no evidence of infection. Lipase is normal 72. CT of abdomen and pelvis reveals postoperative changes around the sigmoid colon, no evidence for leak or abscess, no free air, there could be a mild ileus. Patient received fluids and pain medicine today, she is resting comfortably. I discussed these findings with her. I recommended continuing with a low fiber diet, increasing her fluid intake. She is taking [place] as at home for discomfort as well as ibuprofen, recommended continuing with these. She can follow-up with Dr. Galindo. She is agreeable to this plan of care and she is stable for discharge. Return parameters were discussed with her and she verbalized understanding. Case discussed with Dr. Jarrett. - Lab Data Result diagrams: 06/14/21 13:51 06/14/21 13:51 Lab Results 06/14/21 06/14/21 06/14/21 Range/Units 13:51 13:51 13:51 WBC 8.2 (3.8-10.6) k/uL RBC 3.96 (3.80-5.40) m/uL Hgb 12.4 (11.4-16.0) gm/dL Hct 37.8 (34.0-46.0) % MCV 95.4 (80.0-100.0) fL MCH 31.4 (25.0-35.0) pg MCHC 32.9 (31.0-37.0) g/dL RDW 13.9 (11.5-15.5) % Plt Count 363 (150-450) k/uL MPV 7.4 Neutrophils % 63 % Lymphocytes % 23 % Monocytes % 5 % Eosinophils % 6 % Basophils % 2 % Neutrophils # 5.1 (1.3-7.7) k/uL Lymphocytes # 1.9 (1.0-4.8) k/uL Monocytes # 0.4 (0-1.0) k/uL Eosinophils # 0.5 (0-0.7) k/uL Basophils # 0.1 (0-0.2) k/uL PT 9.9 (9.0-12.0) sec INR 0.9 (<1.2) APTT 25.9 (22.0-30.0) sec Sodium (137-145) mmol/L Potassium (3.5-5.1) mmol/L Chloride (98-107) mmol/L Carbon Dioxide (22-30) mmol/L Anion Gap mmol/L BUN (7-17) mg/dL Creatinine (0.52-1.04) mg/dL Est GFR (CKD-EPI)AfAm (>60 ml/min/1.73 sqM) Est GFR (CKD-EPI)NonAf (>60 ml/min/1.73 sqM) Glucose (74-99) mg/dL Plasma Lactic Acid Jose (0.7-2.0) mmol/L Calcium (8.4-10.2) mg/dL Total Bilirubin (0.2-1.3) mg/dL AST (14-36) U/L ALT (4-34) U/L Alkaline Phosphatase (38-126) U/L Total Protein (6.3-8.2) g/dL Albumin (3.5-5.0) g/dL Amylase (30-110) U/L Lipase (23-300) U/L Urine Color Light Yellow Urine Appearance Clear (Clear) Urine pH 6.0 (5.0-8.0) Ur Specific [place] 1.018 (1.001-1.035) Urine Protein Negative (Negative) Urine Glucose (UA) Negative (Negative) Urine Ketones Negative (Negative) Urine Blood Negative (Negative) Urine Nitrite Negative (Negative) Urine Bilirubin Negative (Negative) Urine Urobilinogen <2.0 (<2.0) mg/dL Ur Leukocyte Esterase Negative (Negative) 06/14/21 06/14/21 Range/Units 13:51 13:56 WBC (3.8-10.6) k/uL RBC (3.80-5.40) m/uL Hgb (11.4-16.0) gm/dL Hct (34.0-46.0) % MCV (80.0-100.0) fL MCH (25.0-35.0) pg MCHC (31.0-37.0) g/dL RDW (11.5-15.5) % Plt Count (150-450) k/uL MPV Neutrophils % % Lymphocytes % % Monocytes % % Eosinophils % % Basophils % % Neutrophils # (1.3-7.7) k/uL Lymphocytes # (1.0-4.8) k/uL Monocytes # (0-1.0) k/uL Eosinophils # (0-0.7) k/uL Basophils # (0-0.2) k/uL PT (9.0-12.0) sec INR (<1.2) APTT (22.0-30.0) sec Sodium 134 L (137-145) mmol/L Potassium 4.9 (3.5-5.1) mmol/L Chloride 101 (98-107) mmol/L Carbon Dioxide 25 (22-30) mmol/L Anion Gap 8 mmol/L BUN 17 (7-17) mg/dL Creatinine 0.59 (0.52-1.04) mg/dL Est GFR (CKD-EPI)AfAm >90 (>60 ml/min/1.73 sqM) Est GFR (CKD-EPI)NonAf >90 (>60 ml/min/1.73 sqM) Glucose 90 (74-99) mg/dL Plasma Lactic Acid Jose 0.7 (0.7-2.0) mmol/L Calcium 9.6 (8.4-10.2) mg/dL Total Bilirubin 0.5 (0.2-1.3) mg/dL AST 41 H (14-36) U/L ALT 35 H (4-34) U/L Alkaline Phosphatase 107 (38-126) U/L Total Protein 7.0 (6.3-8.2) g/dL Albumin 3.9 (3.5-5.0) g/dL Amylase 43 (30-110) U/L Lipase 72 (23-300) U/L Urine Color Urine Appearance (Clear) Urine pH (5.0-8.0) Ur Specific [place] (1.001-1.035) Urine Protein (Negative) Urine Glucose (UA) (Negative) Urine Ketones (Negative) Urine Blood (Negative) Urine Nitrite (Negative) Urine Bilirubin (Negative) Urine Urobilinogen (<2.0) mg/dL Ur Leukocyte Esterase (Negative) Disposition Clinical Impression: Abdominal pain Disposition: HOME SELF-CARE Condition: Stable Instructions (If sedation given, give patient instructions): Abdominal Pain ( ED) Additional Instructions: Please return to the Emergency Department if symptoms worsen or any other concerns. Continue with urology prescribed pain medication, recommend a stool softener in addition to that. Increase your fluid intake. Follow-up with your surgeon. Is patient prescribed a controlled substance at d/c from ED?: No Referrals: Shashi Harris MD [Primary Care Provider] - 1-2 days Lola Galindo MD [STAFF PHYSICIAN] - 1-2 days Time of Disposition: 15:40
[2021-06-14 16:16] VITALS: BP 148/90; PULSE 81; RESP 18; TEMP 98.2
== END 2021-06-14 16:15 | disposition home or self-care (01) ==
LOC: EC 10:30
DX: R10.30 Lower abdominal pain, unspecified (principal); F41.9 Anxiety disorder, unspecified; F17.200 Nicotine dependence, unspecified, uncomplicated; Z90.49 Acquired absence of other specified parts of digestive tract
CPT/HCPCS: 99284; 96374; 96375; 96361; 36415; 80053; 82150; 83605; 83690; 85025; 85610; 85730; 81003; 74019; 74177; J2270; J2405; Q9967

== ENCOUNTER → 2022-03-13 | Outpatient (CLI) | payer BC ==
--- NOTE | 2022-03-13 10:35 | XR ---
EXAMINATION TYPE: XR Hip Bilateral Complete DATE OF EXAM: 03/13/2022 COMPARISON: NONE HISTORY: Pain TECHNIQUE: 2 views of each hip are submitted FINDINGS: Right hip: There is mild concentric narrowing of the joint space of the greater axial directional com ponent. No acute fracture. No dislocation. No erosive changes. Left hip: There is a mild concentric narrowing of the hip joint with hypertrophic changes in the acet abulum. No erosive change. No acute fracture or dislocation. Calcifications in the pelvis are likely vascular. Mild arthropathy of bilateral SI joints. Question s urgical sutures within the left pelvis. IMPRESSION: 1. Mild bilateral hip arthropathy. Correlate for femoral acetabular impingement particularly on the l eft. 2. Bilateral SI joint arthropathy.
--- NOTE | 2022-03-13 10:36 | XR ---
EXAMINATION TYPE: XR knee complete bilateral DATE OF EXAM: 03/13/2022 COMPARISON: NONE HISTORY: Pain TECHNIQUE: Three views are submitted. FINDINGS: Mild narrowing of the medial compartment and patellofemoral compartment of bilateral knee. Tiny hyper trophic spurs are seen. Fluid in the suprapatellar bursa noted. Osseous structures are intact. No ac [place] fracture seen. IMPRESSION: 1. Mild arthropathy correlate for osteoarthritis. 2. Nonspecific fluid within the suprapatellar bursa bilaterally.
== END | disposition home or self-care (01) ==
LOC: RADXRMAIN 09:58
PROVIDERS: ATTEND Family Medicine
DX: M16.0 Bilateral primary osteoarthritis of hip (principal); M17.0 Bilateral primary osteoarthritis of knee
CPT/HCPCS: 73521

== ENCOUNTER → 2022-04-20 | Outpatient (CLI) | payer BC ==
--- NOTE | 2022-04-21 06:12 | MR ---
EXAMINATION TYPE: MR lumbar spine wo con DATE OF EXAM: 04/20/2022 COMPARISON: CT abdomen and pelvis May 25, 2021 HISTORY: Prior MR SI joints, chronic low back pain with left sided radiculopathy TECHNIQUE: Multiplanar, multisequence imaging of the lumbar spine is performed without IV contrast. FINDINGS: Sagittal images of the lumbar spine show vertebral body heights and alignment to remain sat isfactory. There is multilevel disc desiccation L2-L3 through the L5-S1 levels. There is mild to mode rate disc space narrowing L4-L5 level. There is moderate to advanced disc space narrowing with vacuu m disc phenomenon and heterogeneous bony uptake to endplate changes at the L5-S1 level. The conus med ullaris is normal in position and signal ending inferior L1 level. Additional heterogeneous Modic typ e II endplate changes and anterior T11-T12 level where there is [id number] disc space narrowing and spurring. Axial images at T11-T12 levels with mild broad disc bulge minimally effacing the anterior thecal sac. Axial images at T12-L1, L1-L2, L2-L3, and L3-L4 levels all appear within normal limits. Axial images at L4-L5 level shows mild facet arthropathy bilaterally. Spinal canal is preserved. Bila teral neural foramina are patent. Axial images at L5-S1 level show mild broad disc bulge with spinal canal is preserved. Bilateral neur al foramina are patent. No suspicious retroperitoneal findings are seen. IMPRESSION: Multilevel degenerative changes in the lumbar spine greatest at L5-S1 level as detailed a donna.
== END | disposition home or self-care (01) ==
LOC: RADMRIMAIN 15:16
PROVIDERS: ATTEND Internal Medicine Rheumatology
DX: M51.26 Other intervertebral disc displacement, lumbar region (principal); M47.816 Spondylosis without myelopathy or radiculopathy, lumbar region
CPT/HCPCS: 72148

== ENCOUNTER → 2024-05-12 | Outpatient (CLI) | payer BC ==
[2024-05-12 16:05] LABS: Basophils # (A) 0.09 X 10*3/uL (0.00-0.10); Basophils % (A) 1.3 %; Eosinophils # (A) 0.17 X 10*3/uL (0.04-0.35); Eosinophils % (A) 2.5 %; HCT 38.7 % (37.2-46.3); HGB 12.8 g/dL (12.0-15.0); Lymphocytes # (A) 2.17 X 10*3/uL (0.90-5.00); Lymphocytes % (A) 32.1 %; MCH 30.8 pg (27.0-32.0); MCHC 33.1 g/dL (32.0-37.0); MCV 93.3 FL (80.0-97.0); Mean Platelet Volume 11.3 FL (9.5-12.2); Monocytes # (A) 0.32 X 10*3/uL (0.20-1.00); Monocytes % (A) 4.7 %; NRBC Per 100 WBC 0 X 10*3/uL (0.00-0.01); Neutrophils % (A) 59.3 %; Platelet Count 331 X 10*3/uL (140-440); RBC 4.15 X 10*6/uL (4.10-5.20); RDW 14.6 % (11.5-14.5); WBC 6.76 X 10*3/uL (4.50-10.00)
[2024-05-12 17:05] LABS: Chol/HDL Ratio 4.28 Ratio; LDL Cholesterol,Calculated 118.7 mg/dL (0.0-131.0); T4, Free (Free Thyroxine) 1.35 ng/dL (0.80-1.80); VLDL Calculation 13.86 mg/dL (5.00-40.00)
[2024-05-12 17:30] LABS: ALT 25 U/L (8-44); AST 35 U/L (13-35); Albumin 3.8 g/dL (3.8-4.9); Alkaline Phosphatase 90 U/L (41-126); BUN/Creat Ratio 18.83 Ratio (12.00-20.00); Blood Urea Nitrogen 11.3 mg/dL (9.0-27.0); Calcium 9.3 mg/dL (8.7-10.3); Carbon Dioxide 22.1 mmol/L (21.6-31.8); Chloride 107 mmol/L (96-109); Glucose 94 mg/dL (70-110); Potassium 4.9 mmol/L (3.5-5.5); Sodium 141 mmol/L (135-145); Total Bilirubin 0.2 mg/dL (0.3-1.2); Total Protein 5.8 g/dL (6.2-8.2)
== END | disposition home or self-care (01) ==
LOC: LABWHC1 08:51
PROVIDERS: ATTEND Family Medicine
DX: Z00.00 Encounter for general adult medical examination without abnormal findings (principal); E66.01 Morbid (severe) obesity due to excess calories; E78.5 Hyperlipidemia, unspecified
CPT/HCPCS: 36415; 80053; 80061; 84439; 84443; 85025